=== PATIENT | male | born 1940 | race Caucasian/White ===

== ENCOUNTER 2018-11-28 21:50 | Inpatient (IN) ==
[2018-11-28] MEDS ORDERED: FUROSEMIDE 40 MG/4 ML VIAL IV ONE (21:58)
[2018-11-28] MEDS ORDERED: 0.9 % SODIUM CHLORIDE 250 ML IV SCH ×2 (22:00→22:15)
--- NOTE | 2018-11-28 22:10 | Emergency Department Note ---
Recheck HPI - General Chief Complaint: Recheck/Abnormal Lab/Rx Stated Complaint: abnormal lab work Time Seen by Provider: 11/28/18 21:54 Source: patient Mode of arrival: ambulatory Limitations: no limitations - History of Present Illness HPI Narrative: Phone call from Dr. Tsang in which he had discussed the patient that he was sending over. He had received his laboratory tests which showed a hematocrit of 18.5 but were unable to calculate the hemoglobin as he is to manage lipids noted and it is BNP was also elevated at 10,521. And he recommended that we diurese him as well given the transfusion. He had a chest x-ray which showed a small right infiltrate but his white count was only 6800 apparently has some edema to his lower extremities and he has been evaluated by CT and read by Dr. 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 Patient was asked to come into the ED to get transfusion diuresedTemperature is 96.9 the pulse is 94 the respirations 20 blood pressure 154/86 pulse ox is at 90%-93% patient smokes and continues smoking - Related Data Home Medications Medication Instructions Recorded Confirmed lanreotide 1 vial SUB-Q QMONTH 01/07/18 11/29/18 everolimus (antineoplastic) 10 mg 40 mg PO QDAY 08/12/18 11/29/18 tablet RX: Omeprazole [Prilosec] 40 mg PO BID 11/25/18 11/29/18 RX: HYDROcodone/APAP 10/325MG 1 tab PO Q4H PRN 11/28/18 11/29/18 [[place] 10-325Mg] Previous Rx's Medication Instructions Recorded tamsulosin 0.4 mg capsule 0.4 mg PO QDAY #90 cap 08/12/18 RX: Azithromycin [Zithromax] 500 mg PO DAILY #2 tab 12/01/18 RX: Cefdinir 300 mg PO BID #10 cap 12/01/18 Allergies Allergy/AdvReac Type Severity Reaction Status Date / Time morphine Allergy Severe Irritable Verified 11/28/18 13:35 codeine sulfate Allergy Severe Agitated Uncoded 11/28/18 13:35 Past Medical History - Past Medical History Medical history: Reports: hypertension - Social History smoking status: Current every day smoker Physical Exam Limitations: no limitations Course Vital Signs Temperature 96.9 F L 11/28/18 21:51 Pulse Rate 94 H 11/28/18 21:51 Respiratory Rate 20 11/28/18 21:51 Blood Pressure 154/86 11/28/18 21:51 Pulse Oximetry (%) 90 11/28/18 21:51 Temperature 98.6 F 12/01/18 12:21 Pulse Rate 94 H 12/01/18 12:21 Respiratory Rate 20 12/01/18 12:21 Blood Pressure 125/75 12/01/18 12:21 Pulse Oximetry (%) 90 12/01/18 12:21 Recheck/Abnormal Lab/Rx - MDM Narrative Medical decision making narrative: His initial dose of Lasix his urine output was greater than 1000 cc. The chest x-ray was repeated and shows a an increasing right sided infiltrate. Dr. Jang contacted and patient fitted for right pneumonia anemia, CHF - Lab Data Result diagrams: 12/01/18 04:36 12/01/18 04:36 Lab Results 11/28/18 11/28/18 11/28/18 Range/Units 22:05 22:05 22:20 WBC 7.4 (4.5-11.0) K/mcL RBC 2.86 L (4.50-5.90) M/mcL Hgb 8.4 L (13.5-16.5) g/dL Hct 25.4 L (41.0-55.0) % POC Hct 23.0 L (41.0-55.0) % MCV 89.1 (80.0-100.0) fL MCH 29.5 (26.0-34.0) pg MCHC 33.1 (31.0-36.0) g/dL RDW 16.8 H (11.5-14.5) % Plt Count 62 L (140-440) K/mcL MPV 12.2 H (7.4-10.4) fL Gran % 54.3 (38.0-78.0) % Lymph % (Auto) 25.5 (15.5-49.0) % [place] % (Auto) 17.3 H (1.0-12.0) % Eos % (Auto) 1.3 (0.0-7.0) % Baso % (Auto) 1.6 (0.0-2.0) % Gran # 4.2 (1.8-8.0) K/mcL Lymph # (Auto) 1.8 (1.5-4.8) K/mcL [place] # (Auto) 1.2 H (0.1-0.9) K/mcL Eos # (Auto) 0 (0.0-0.7) K/mcL Baso # (Auto) 0.2 (0.0-0.3) K/mcL VBG Lactic Acid 1.0 (0.5-2.0) mmol/L POC Sodium 147 H (133-145) mmol/L Sodium (133-145) mmol/L POC Potassium 3.5 (3.3-5.1) mmol/L Potassium (3.3-5.1) mmol/L POC Chloride 108 (96-108) mmol/L Chloride (96-108) mmol/L Carbon Dioxide (22-30) mmol/L POC Total CO2 28 (22-30) mmol/L Anion Gap (8-16) POC BUN 16 (8-23) mg/dl BUN (8-23) mg/dl Creatinine (0.7-1.2) mg/dl POC Creatinine 0.8 (0.7-1.2) mg/dl GFR Calculation Glucose (70-105) mg/dL POC Glucose 110 H (70-105) mg/dL Calcium (8.6-10.4) mg/dl POC WB Ioniz Calcium 1.13 L (1.16-1.32) mmol/L NT-Pro-B Natriuret Pep (0-450) pg/ml 11/29/18 11/29/18 Range/Units 07:02 07:02 WBC (4.5-11.0) K/mcL RBC (4.50-5.90) M/mcL Hgb (13.5-16.5) g/dL Hct (41.0-55.0) % POC Hct TNP (41.0-55.0) % MCV (80.0-100.0) fL MCH (26.0-34.0) pg MCHC (31.0-36.0) g/dL RDW (11.5-14.5) % Plt Count (140-440) K/mcL MPV (7.4-10.4) fL Gran % (38.0-78.0) % Lymph % (Auto) (15.5-49.0) % [place] % (Auto) (1.0-12.0) % Eos % (Auto) (0.0-7.0) % Baso % (Auto) (0.0-2.0) % Gran # (1.8-8.0) K/mcL Lymph # (Auto) (1.5-4.8) K/mcL [place] # (Auto) (0.1-0.9) K/mcL Eos # (Auto) (0.0-0.7) K/mcL Baso # (Auto) (0.0-0.3) K/mcL VBG Lactic Acid (0.5-2.0) mmol/L POC Sodium TNP (133-145) mmol/L Sodium 148 H (133-145) mmol/L POC Potassium TNP (3.3-5.1) mmol/L Potassium 3.5 (3.3-5.1) mmol/L POC Chloride TNP (96-108) mmol/L Chloride 107 (96-108) mmol/L Carbon Dioxide 30 (22-30) mmol/L POC Total CO2 TNP (22-30) mmol/L Anion Gap 11.0 (8-16) POC BUN TNP (8-23) mg/dl BUN 14 (8-23) mg/dl Creatinine 0.9 (0.7-1.2) mg/dl POC Creatinine TNP (0.7-1.2) mg/dl GFR Calculation 82 Glucose 102 (70-105) mg/dL POC Glucose TNP (70-105) mg/dL Calcium 8.4 L (8.6-10.4) mg/dl POC WB Ioniz Calcium TNP (1.16-1.32) mmol/L NT-Pro-B Natriuret Pep 55490.0 H (0-450) pg/ml Disposition 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
[2018-11-28 23:58] LABS: Basophils # (Auto) 0.2 K/mcL (0.0-0.3); Basophils % (Auto) 1.6 % (0.0-2.0); Eosinophils # (Auto) 0 K/mcL (0.0-0.7); Eosinophils % (Auto) 1.3 % (0.0-7.0); Granulocytes % (Auto) 54.3 % (38.0-78.0); Lymphocytes # (Auto) 1.8 K/mcL (1.5-4.8); Lymphocytes % (Auto) 25.5 % (15.5-49.0); Mean Cell Volume 89.1 fL (80.0-100.0); Mean Corpuscular HGB Conc 33.1 g/dL (31.0-36.0); Monocytes # (Auto) 1.2 K/mcL (0.1-0.9); Monocytes % (Auto) 17.3 % (1.0-12.0); Platelet Count 62 K/mcL (140-440); RBC 2.86 M/mcL (4.50-5.90); Red Cell Distribution Width 16.8 % (11.5-14.5)
[2018-11-29] MEDS ORDERED: FUROSEMIDE 20 MG/2 ML VIAL IV ONE ×2 (05:20→06:51)
[2018-11-29 07:56] LABS: Blood Urea Nitrogen 14 mg/dl (8-23)
[2018-11-29] MEDS ORDERED: cefTRIAXone 1 GM in DEXTROSE 5% IN WATER 50 ML IV ONE (08:59)
[2018-11-29] MEDS ORDERED: AZITHROMYCIN 500 MG in DEXTROSE 5% IN WATER 250 ML IV ONE ×2 (09:00→12:00)
--- NOTE | 2018-11-29 09:01 | XRay Report ---
CLINICAL INFORMATION: low O2 sat COMPARISON: 11/28/2018 FINDINGS: Mild cardiomegaly is unchanged. Mediastinum unremarkable. Pulmonary vessels within normal limits. Right lower lobe infiltrate has worsened and now moderate in size. Small right pleural effusion noted IMPRESSION: Moderate right lower lobe pneumonia with small effusion - worsening from yesterday Interpreted and Authenticated by: Cody Castañeda 11/29/18
--- NOTE | 2018-11-29 10:38 | Internal Med History&Physical ---
Medical - H&P: HPI Patient information: Note initiated : 11/29/18 at 10:36 am Service Date, if different from initiated Date: [] Patient: Alonso Finley a 78 y/o M admitted on for Abnormal Lab Work. Chief Complaint: [] Chief complaint: SOB History of present illness: Mr. Finley is a 78 year old M who presents to the ER after he was sent over by Dr. Tsang for low hemoglobin and need for blood transfusion. Patient carries a history of metastatic carcinoid tumor and currently being managed by Dr. Contreras at [facility]. He also underwent PRBC transfusion recently for low hemoglobin. On arrival to ER patient was found to be short of breath and hypoxia requiring oxygen. Subsequent chest x-ray showed right lower lobe infiltrate consistent with pneumonia. Patient was started on antibiotic coverage. Hospitalist service is consulted. At the time of evaluation patient is alert oriented. He denies sick contacts but endorses to recurrent aspiration pneumonia secondary to esophageal stricture. He had serial dilatation done by Dr. Kern and the most recent one was done few days ago by Dr. Kim. He currently does not have any dysphagia. He also denies fevers shaking chills productive sputum. He denies headache photophobia diarrhea dysuria abdominal pain. 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 08/27/14 Schatzki ring. 12/24/16 esophageal dysmotility. 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) Forehead History of coronary artery stent placement (Resolved) 05/06 LAD History of colonoscopy (Resolved 02/21/14) HP History of cataract surgery (Resolved) bilateral History of appendectomy (Resolved) History of surgery of liver (Resolved) 1/2 liver removal Pertinent family history: Father Abdominal aortic aneurysm Other Cancer Social history: household members: other housing: house lives independently: Yes marital status: 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 leisure activities: hunting other: 4 children smoking status: Current every day smoker quit status: not considering quitting counseling given: provider counseling alcohol intake frequency: a few times a week Smoking status: Current every day smoker Medical - H&P: Meds Home Medications Medication Instructions Recorded Confirmed Type lanreotide 1 vial SUB-Q QMONTH 01/07/18 11/29/18 History everolimus (antineoplastic) 10 mg 40 mg PO QDAY 08/12/18 11/29/18 History tablet tamsulosin 0.4 mg capsule 0.4 mg PO QDAY #90 cap 08/12/18 11/29/18 Rx Omeprazole [PriLOSEC] 40 mg PO BID 11/25/18 11/29/18 History HYDROcodone/APAP 10/325MG [[place] 1 tab PO Q4H PRN 11/28/18 11/29/18 History 10-325Mg] Allergies Allergy/AdvReac Type Severity Reaction Status Date / Time morphine Allergy Severe Irritable Verified 11/28/18 13:35 codeine sulfate Allergy Severe Agitated Uncoded 11/28/18 13:35 Medical - H&P: Exam - Constitutional Vitals: Temp Pulse Resp BP Pulse Ox 96.9 F L 77 18 122/78 98 11/28/18 21:51 11/29/18 10:20 11/29/18 10:20 11/29/18 10:16 11/29/18 10:20 General appearance: no acute distress Exam: Eye movements symmetric Oral cavity dry no ear nose discharge Head normocephalic Neck no lymphadenopathy S1-S2 regular rhythm Diminished breath sounds bases along with late inspiratory crackles right posterior chest. On 2 L oxygen Abdomen soft Lower extremity no cyanosis clubbing No joint swelling erythema Skin no suspicious lesion Psych alert cooperative Neuro nonfocal Medical - H&P: Reslt - Labs CBC & Chem 7: 11/30/18 05:15 11/30/18 05:15 Labs: Short CBC 11/28/18 Range/Units 22:05 WBC 7.4 (4.5-11.0) K/mcL Hgb 8.4 L (13.5-16.5) g/dL Hct 25.4 L (41.0-55.0) % Plt Count 62 L (140-440) K/mcL BMP 11/29/18 07:02 Sodium 148 H Potassium 3.5 Chloride 107 Carbon Dioxide 30 BUN 14 Creatinine 0.9 Glucose 102 Calcium 8.4 L Medical - H&P: A/P (1) RLL pneumonia Current visit: Yes Status: Acute * Right lower lobe pneumonia, aspiration versus community acquired, continue antibiotic coverage/aspiration precaution/ST eval. pneumonia severity index over 100 mandating inpatient hospitalization * Esophageal stricture requiring serial dilatation. Last endoscopic dilatation [address] Kim. Continue soft diet * Hypoxic respiratory insufficiency continue supplemental oxygen. Secondary to right lower lobe pneumonia. Admit as inpatient * Severe anemia status post 2 units transfusion. Hemoglobin over 8 * history of GERD on PPI * Thrombocytopenia. Continue to monitor. Avoid heparins * Advanced disease status post iliac artery angioplasty by Dr. Nova * History of metastatic carcinoid tumor-continue prior home medications * Full code * DVT prophylaxis SCDs in light of anemia and possible GI bleed Plan * Inpatient admit * Antibiotic coverage * Continue dysphagia diet after ST eval * Aspiration precautions * ST eval * Aggressive PT OT/rehab support * Pre-existing medical condition management and home meds
[2018-11-29] MEDS ORDERED: ACETAMINOPHEN 325 MG TABLET PO PRN (11:30)
[2018-11-29] MEDS ORDERED: ACETAMINOPHEN 1,000 MG/100 ML BOTTLE IV PRN (11:30)
[2018-11-29] MEDS ORDERED: MAGNESIUM SULFATE 2 GM/50 ML BAG IV PRN (11:30)
[2018-11-29] MEDS ORDERED: HYDROcodone/APAP 10/325MG TABLET PO PRN (11:30)
[2018-11-29] MEDS ORDERED: ONDANSETRON 4 MG/2 ML VIAL IV PRN (11:30)
[2018-11-29] MEDS ORDERED: POTASSIUM CHLORIDE 20 MEQ PACKET PO PRN (11:30)
[2018-11-29 12:32] LABS: C-Reactive Protein 3.4 mg/dl (0.0-0.8)
[2018-11-29] MEDS ORDERED: cefTRIAXone 1 GM VIAL IV ONE (13:00)
[2018-11-29] MEDS: IPRATROPIUM/ALBUTEROL 3 ML AMPUL.NEB NEB SCH ×4 (16:33→23:45)
[2018-11-29] MEDS: EVEROLIMUS 10 MG PO SCH (16:34)
[2018-11-29] MEDS: NICOTINE 14 MG PATCH TOPICAL SCH (16:35)
[2018-11-29] MEDS: 0.9 % SODIUM CHLORIDE 10 ML SYRINGE IV SCH ×2 (16:50→22:00)
[2018-11-29] MEDS: OMEPRAZOLE 20 MG CAPSULE PO SCH (16:53)
[2018-11-29 17:25] LABS: Appearance,Urine CLEAR; Bacteria,Urine FEW /hpf (0); Bilirubin,Urine NEG (NEG); Color,Urine YELLOW; Glucose,Urine (UA) NEGATIVE (NEG); Leukocyte Esterase,Urine NEG /uL (NEG); Mucus,Urine MANY /hpf (0); Protein,Urine 30 mg/dL (NEG); Specific Gravity,Urine 1.018 (1.000-1.035); Urine Blood NEG mg/dL (<0.03); Urine Hyaline Cast 3 /lpf (0-2); Urine RBC 1 /hpf (0-1); Urine Squamous Epithelial Cell < 1 /hpf (0-4); Urine WBC 4 /hpf (0-4); Urobilinogen,Urine NEG (NEG)
[2018-11-29] MEDS: BUDESONIDE 0.5 MG/2 ML AMPUL.NEB NEB SCH (19:58)
[2018-11-29] MEDS: DOCUSATE SODIUM 100 MG CAPSULE PO SCH (20:35)
[2018-11-29] MEDS: SENNOSIDES/DOCUSATE SODIUM 1 TAB TABLET PO SCH (20:36)
[2018-11-30] MEDS: 0.9 % SODIUM CHLORIDE 10 ML SYRINGE IV SCH ×5 (02:58→20:44)
[2018-11-30] MEDS: IPRATROPIUM/ALBUTEROL 3 ML AMPUL.NEB NEB SCH ×4 (02:58→19:25)
[2018-11-30] MEDS: OMEPRAZOLE 20 MG CAPSULE PO SCH ×2 (06:59→17:13)
[2018-11-30] MEDS: BUDESONIDE 0.5 MG/2 ML AMPUL.NEB NEB SCH ×2 (07:09→19:25)
[2018-11-30 07:11] LABS: ALT/SGPT 9 U/l (0-40); Alkaline Phosphatase 81 U/L (39-117); Bilirubin,Direct < 0.2 mg/dL (0.0-0.3); Blood Urea Nitrogen 14 mg/dl (8-23); Gamma Glutamyl Transpeptidase 26 U/L (8-61); Uric Acid 5.7 mg/dL (2.5-8.0)
[2018-11-30] MEDS ORDERED: POTASSIUM CHLORIDE 20 MEQ PACKET PO ONE (08:40)
[2018-11-30] MEDS: FUROSEMIDE 40 MG/4 ML VIAL IV SCH (08:53)
[2018-11-30] MEDS: MULTIVIT,THER IRON,CA,FA & MIN 1 TABLET PO SCH (08:53)
[2018-11-30] MEDS: TAMSULOSIN 0.4 MG CAPSULE PO SCH (08:53)
[2018-11-30] MEDS: DOCUSATE SODIUM 100 MG CAPSULE PO SCH ×2 (08:54→19:53)
[2018-11-30] MEDS: cefTRIAXone 2 GM in DEXTROSE 5% IN WATER 50 ML IV SCH (08:54)
[2018-11-30 09:00] LABS: Mean Cell Volume 85.4 fL (80.0-100.0); Mean Corpuscular HGB Conc 31.9 g/dL (31.0-36.0); Platelet Count 47 K/mcL (140-440); RBC 3.27 M/mcL (4.50-5.90); Red Cell Distribution Width 16.2 % (11.5-14.5)
[2018-11-30] MEDS ORDERED: LANREOTIDE SUB-Q SCH (09:00)
[2018-11-30 09:30] LABS: Anisocytosis 1+ (NONE SEEN); Band Neutrophils % 1 % (0-10); Eosinophils % (Manual) 3 % (0-7); Lymphocytes % 36 % (15-49); Monocytes % (Manual) 13 % (1-12); Platelet Estimate DECREASED (NORMAL); RBC Morphology ABNORM (NORMAL); Segmented Neutrophils % 47 % (38-78)
--- NOTE | 2018-11-30 09:36 | Internal Med Progress Note ---
Medical - PN: Subj Patient information: Note initiated : 11/30/18 at 9:33 am Service Date, if different from initiated Date: [] Patient: Alonso Finley a 78 y/o M admitted on 11/29/18 for Abnormal Lab Work. Chief Complaint: [] Interval history: Mr. Finley is a 78 year old M who presents to the ER after he was sent over by Dr. Tsang for low hemoglobin and need for blood transfusion. Patient carries a history of metastatic carcinoid tumor and currently being managed by Dr. Contreras at [facility]. He also underwent PRBC transfusion recently for low hemoglobin. On arrival to ER patient was found to be short of breath and hypoxia requiring oxygen. Subsequent chest x-ray showed right lower lobe infiltrate consistent with pneumonia. Patient was started on antibiotic coverage. Hospitalist service is consulted. At the time of evaluation patient is alert oriented. He denies sick contacts but endorses to recurrent aspiration pneumonia secondary to esophageal stricture. He had serial dilatation done by Dr. Kern and the most recent one was done few days ago by Dr. Kim. He currently does not have any dysphagia. 11/30-patient doing markedly better. Able to ambulate. On 2 L oxygen. Tolerating diet. Denies dysphagia. Denies fever chills productive cough or chest pain. Brother at bedside. No overnight events or concerns per staff - Constitutional Vitals: Vital Signs Temp Pulse Resp BP Pulse Ox 98.1 F 99 H 18 123/73 96 11/30/18 07:58 11/30/18 08:23 11/30/18 08:23 11/30/18 07:58 11/30/18 08:22 Period Temp Pulse Resp BP Sys/Martinez Pulse Ox Last 24 Hr 96.9 F-98.5 F 73-107 16-33 114-136/60-82 92-98 Intake and Output 11/29/18 11/30/18 11/30/18 21:59 05:59 13:59 Intake Total 860 350 120 Output Total 500 Balance 360 350 120 Weight 163 lb Intake & Output: Intake & Output 11/29/18 11/30/18 11/30/18 21:59 05:59 13:59 Intake Total 860 350 120 Output Total 500 Balance 360 350 120 Weight 163 lb Intake: Oral 860 350 120 Output: Void Amount 500 Other: Meal Dinner Percent of Meal Consumed 100% Feeding Ability Independent Urine Color Dark Yellow Stool Size Moderate Small Stool Color Brown Brown Pale Stool Consistency Loose Soft # Voids 1 # Bowel Movements 1 1 General appearance: no acute distress Exam: Alert oriented Nonlabored breathing Nondistended abdomen No anxiety Medical - PN: Obj Da - Labs CBC & Chem 7: 11/30/18 05:15 11/30/18 05:15 Labs: Abnormal Lab Results 11/30/18 11/30/18 11/29/18 05:15 05:15 16:30 RBC 3.27 L Hgb 8.9 L Hct 27.9 L POC Hct RDW 16.2 H Plt Count 47 L* MPV 12.0 H [place] % (Auto) [place] # (Auto) Monocytes % (Manual) 13 H Platelet Estimate Decreased A RBC Morphology Abnorm A Anisocytosis 1+ A ESR POC Sodium Sodium Potassium 3.1 L Carbon Dioxide 31 H Glucose 142 H POC Glucose Calcium 8.1 L POC WB Ioniz Calcium C-Reactive Protein NT-Pro-B Natriuret Pep Albumin 3.0 L Urine Protein 30 A Urine Bacteria Few A Hyaline Casts 3 H Urine Mucus Many A 11/29/18 11/29/18 11/29/18 11:46 11:46 07:02 RBC Hgb Hct POC Hct RDW Plt Count MPV [place] % (Auto) [place] # (Auto) Monocytes % (Manual) Platelet Estimate RBC Morphology Anisocytosis ESR 59 H POC Sodium Sodium Potassium Carbon Dioxide Glucose POC Glucose Calcium POC WB Ioniz Calcium C-Reactive Protein 3.4 H NT-Pro-B Natriuret Pep 41686.0 H Albumin Urine Protein Urine Bacteria Hyaline Casts Urine Mucus 11/29/18 11/28/18 11/28/18 07:02 22:05 22:05 RBC 2.86 L Hgb 8.4 L Hct 25.4 L POC Hct 23.0 L RDW 16.8 H Plt Count 62 L MPV 12.2 H [place] % (Auto) 17.3 H [place] # (Auto) 1.2 H Monocytes % (Manual) Platelet Estimate RBC Morphology Anisocytosis ESR POC Sodium 147 H Sodium 148 H Potassium Carbon Dioxide Glucose POC Glucose 110 H Calcium 8.4 L POC WB Ioniz Calcium 1.13 L C-Reactive Protein NT-Pro-B Natriuret Pep Albumin Urine Protein Urine Bacteria Hyaline Casts Urine Mucus Meds: Medications Acetaminophen (Tylenol) 650 mg PO Q4-6HP PRN PRN Reason: PAIN/FEVER > 101 Hydrocodone Bitart/Acetaminophen ([place] 10/325mg) 1 tab PO Q4H PRN PRN Reason: Pain Albuterol/Ipratropium (Duoneb) 3 ml NEB Q6HRT [facility] Budesonide (Pulmicort) 0.5 mg NEB Q12 [facility] Last Admin: 11/30/18 07:09 Dose: 0.5 mg Documented by: Docusate Sodium (Colace) 100 mg PO BID [facility] Last Admin: 11/30/18 08:54 Dose: Not Given Documented by: Furosemide (Lasix) 40 mg IV DAILY [facility] Last Admin: 11/30/18 08:53 Dose: 40 mg Documented by: Ceftriaxone Sodium 2 gm/ (Dextrose) 50 mls @ 100 mls/hr IV Q24H [facility] Last Admin: 11/30/18 08:54 Dose: 100 mls/hr Documented by: Magnesium Sulfate (Magnesium Sulfate) 2 gm in 50 mls @ 50 mls/hr IV UD PRN PRN Reason: MG = or < 1.7 Acetaminophen (Ofirmev) 1,000 mg in 100 mls @ 200 mls/hr IV Q6HP PRN PRN Reason: PAIN/FEVER > 101 Iron Carb/Multivit/Swain/Folic Acid (Multivitamin W/Minerals) 1 tab PO DAILY [facility] Last Admin: 11/30/18 08:53 Dose: 1 tab Documented by: Nicotine (Nicoderm) 14 mg TOPICAL DAILY@1000 [facility] Last Admin: 11/29/18 16:35 Dose: 14 mg Documented by: Omeprazole (Prilosec) 40 mg PO BIDAC [facility] Last Admin: 11/30/18 06:59 Dose: 40 mg Documented by: Ondansetron HCl (Zofran) 4 mg IV Q4-6HP PRN PRN Reason: Nausea And Vomiting Everolimus [Afinitor (] 10 Mg Tab) 1 dose PO DAILY@1700 [facility] Last Admin: 11/29/18 16:34 Dose: 1 dose Documented by: Potassium Chloride (Klor-Con) 40 meq PO DAILYP PRN PRN Reason: K+ < 3.5 Senna/Docusate Sodium (Senna Plus Tablet) 1 tab PO HS [facility] Last Admin: 11/29/18 20:36 Dose: Not Given Documented by: Sodium Chloride (Saline Flush) 10 ml IV Q8 [facility] Last Admin: 11/30/18 05:25 Dose: Not Given Documented by: Tamsulosin HCl (Flomax) 0.4 mg PO QDAY [facility] Last Admin: 11/30/18 08:53 Dose: 0.4 mg Documented by: Medical - PN: A/P - Time Spent With Patient Total time spent is greater than 50% in coordination of care (as documented) at patient's floor/unit and/or counseling patient: 15 - 24 minutes (1) RLL pneumonia Status: Acute Assessment and plan: * Right lower lobe pneumonia, aspiration versus community acquired, clinical improvement noted on antibiotic coverage. Continue aspiration precaution/ST eval. * Dysphagia secondary to esophageal stricture requiring serial dilatation. Last endoscopic dilatation by Dr. Kim last week. * Hypoxic respiratory insufficiency continue supplemental oxygen. Secondary to right lower lobe pneumonia. Admit as inpatient * Severe anemia status post 2 units transfusion. Hemoglobin over 8 * history of GERD on PPI * Thrombocytopenia. Stable. * Advanced disease status post iliac artery angioplasty by Dr. Nova * History of metastatic carcinoid tumor-continue prior home medications * Full code * DVT prophylaxis SCDs in light of anemia and thrombocytopenia Plan * Continue antibiotic coverage * Diet per ST * Aspiration precautions * Aggressive PT OT/rehab support * Pre-existing medical condition management and home meds Current Visit: Yes Medical - PN: Qual - Stroke Symptom Onset Unknown: No - VTE Deep Vein Thrombosis/Pulmonary Embolism Present on Admission: No
[2018-11-30] MEDS: NICOTINE 14 MG PATCH TOPICAL SCH (10:23)
[2018-11-30] MEDS: EVEROLIMUS 10 MG PO SCH (16:53)
[2018-11-30] MEDS: SENNOSIDES/DOCUSATE SODIUM 1 TAB TABLET PO SCH (19:53)
[2018-12-01] MEDS: IPRATROPIUM/ALBUTEROL 3 ML AMPUL.NEB NEB SCH ×2 (00:42→08:51)
[2018-12-01] MEDS: 0.9 % SODIUM CHLORIDE 10 ML SYRINGE IV SCH (05:31)
[2018-12-01 06:11] LABS: ALT/SGPT 9 U/l (0-40); Albumin 2.9 gm/dL (3.2-5.2); Albumin/Globulin Ratio 0.9 (1.0-2.3); Alkaline Phosphatase 88 U/L (39-117); Bilirubin,Direct < 0.2 mg/dL (0.0-0.3); Blood Urea Nitrogen 13 mg/dl (8-23); Gamma Glutamyl Transpeptidase 28 U/L (8-61); Uric Acid 6.2 mg/dL (2.5-8.0)
[2018-12-01] MEDS: OMEPRAZOLE 20 MG CAPSULE PO SCH (07:23)
--- NOTE | 2018-12-01 07:35 | XRay Report ---
CLINICAL INFORMATION: Follow-up pneumonia COMPARISON: 11/29/2018 FINDINGS: The heart is mildly enlarged - slightly increased. Mediastinum is unremarkable. Pulmonary vessels are mildly distended is minimal interstitial edema. Right basilar infiltrate is worse and now moderate in size. There also is new moderate consolidated atelectasis or infiltrate developing in the left lower lobe - retrocardiac region IMPRESSION: 1. Mild CHF - new. 2. Worsening right basilar infiltrate now moderate-sized. Small right pleural effusion 3. New region of moderate consolidated atelectasis or infiltrate in the left base Interpreted and Authenticated by: Cody Castañeda 12/01/18
[2018-12-01] MEDS: MULTIVIT,THER IRON,CA,FA & MIN 1 TABLET PO SCH (08:32)
[2018-12-01] MEDS: TAMSULOSIN 0.4 MG CAPSULE PO SCH (08:32)
[2018-12-01] MEDS: cefTRIAXone 2 GM in DEXTROSE 5% IN WATER 50 ML IV SCH (08:33)
[2018-12-01] MEDS: BUDESONIDE 0.5 MG/2 ML AMPUL.NEB NEB SCH (08:51)
[2018-12-01 09:12] LABS: Mean Cell Volume 85.3 fL (80.0-100.0); Mean Corpuscular HGB Conc 31.5 g/dL (31.0-36.0); Platelet Count 47 K/mcL (140-440); RBC 3.29 M/mcL (4.50-5.90); Red Cell Distribution Width 16.7 % (11.5-14.5)
[2018-12-01] MEDS: DOCUSATE SODIUM 100 MG CAPSULE PO SCH (09:24)
[2018-12-01] MEDS: FUROSEMIDE 40 MG/4 ML VIAL IV SCH (09:24)
--- NOTE | 2018-12-01 09:29 | Discharge Summary ---
Medical - DS: Prov Patient information: Note initiated : 12/01/18 at 9:27 am Service Date, if different from initiated Date: [] Patient: Alonso Finley 78 y/o M admitted on 11/29/18 for Abnormal Lab Work. Chief Complaint: [] Date of admission: 11/29/18 11:09 Discharge date: 12/01/18 Primary care physician: Raymond Tsang Consults: 11/29/18 Consult to Physician [CONS] Stat Comment: Consulting Provider: Miles Patel Reason For Exam: Physician to Consult Medical - DS: Meds - Discharge Medications Prescriptions: Azithromycin [Zithromax] 500 mg PO DAILY #2 tablet Cefdinir 300 mg PO BID #10 capsule Active and Home Medications: Home Medications lanreotide 1 vial SUB-Q QMONTH 01/07/18 [History Confirmed 11/29/18 Last Taken Unknown] everolimus (antineoplastic) 10 mg tablet 40 mg PO QDAY 08/12/18 [History Confirmed 11/29/18 Last Taken Unknown] tamsulosin 0.4 mg capsule 0.4 mg PO QDAY #90 cap 08/12/18 [Rx Confirmed 11/29/18 Last Taken Unknown] Omeprazole [Prilosec] 40 mg PO BID 11/25/18 [History Confirmed 11/29/18 Last Taken Unknown] HYDROcodone/APAP 10/325MG [[place] 10-325Mg] 1 tab PO Q4H PRN 11/28/18 [History Confirmed 11/29/18 Last Taken Unknown] Azithromycin [Zithromax] 500 mg PO DAILY #2 tablet 12/01/18 [Rx Last Taken Unknown] Cefdinir 300 mg PO BID #10 capsule 12/01/18 [Rx Last Taken Unknown] Medical - DS: Hosp Hospital course: \ Discharge diagnosis * Right lower lobe pneumonia community acquired, clinical improvement noted on antibiotic coverage. Continue additional 5 days antibiotics. Continue aspiration precaution and diet as per ST recommendations * Dysphagia secondary to esophageal stricture requiring serial dilatation. Last endoscopic dilatation by Dr. Kim last week. Follow-up as scheduled by GI as outpatient * Hypoxic respiratory insufficiency resolved. Now on room air * Severe anemia status post 2 units transfusion. Hemoglobin over 8 * history of GERD on PPI * Thrombocytopenia. Stable. * Advanced disease status post iliac artery angioplasty by Dr. Nova * History of metastatic carcinoid tumor-continue prior home medications Brief hospital course Mr. Finley is a 78 year old M who presents to the ER after he was sent over by Dr. Tsang for low hemoglobin and need for blood transfusion. Patient carries a history of metastatic carcinoid tumor and currently being managed by Dr. Contreras at [facility]. He also underwent PRBC transfusion recently for low hemoglobin. On arrival to ER patient was found to be short of breath and hypoxia requiring oxygen. Subsequent chest x-ray showed right lower lobe infiltrate consistent with pneumonia. Patient was started on antibiotic coverage. Hospitalist service is consulted. At the time of evaluation patient is alert oriented. He denies sick contacts but endorses to recurrent aspiration pneumonia secondary to esophageal stricture. He had serial dilatation done by Dr. Kern and the most recent one was done few days ago by Dr. Kim. He currently does not have any dysphagia. 11/30-patient doing markedly better. Able to ambulate. On 2 L oxygen. Tolerating diet. Denies dysphagia. Denies fever chills productive cough or chest pain. Brother at bedside. No overnight events or concerns per staff 12/01-patient doing well. No overnight events. Now on room air. Ambulating with ease. Much improved shortness of breath. Advised to continue antibiotics for additional 5 days. Follow-up with primary care physician along with oncologist as prior. Detailed discharge instruction as below Discharge diagnosis: . - Time Spent with Patient Total time spent providing and/or coordinating discharge services: Medical - DS: Exam - Constitutional Vitals: Vital Signs Temp Pulse Pulse Resp BP BP Pulse Ox 12/01/18 08:53 92 H 18 12/01/18 07:33 98.7 F 88 18 131/76 93 12/01/18 03:30 98.6 F 89 18 130/78 93 11/30/18 23:30 98.1 F 90 16 111/62 92 11/30/18 19:53 98.2 F 94 H 18 128/73 92 11/30/18 19:25 87 20 11/30/18 15:00 98.6 F 90 20 109/66 92 11/30/18 13:02 87 20 11/30/18 11:04 97.5 F 93 H 20 132/74 95 Intake and Output 11/30/18 12/01/18 12/01/18 21:59 05:59 13:59 Intake Total 360 300 50 Balance 360 300 50 Intake: IV 50 Rocephin 2 gm In Dextrose 5% in 50 Water 50 ml @ 100 mls/hr IV Q24H [facility] Rx#:[id number] Oral 360 300 Other: Meal Dinner Percent of Meal Consumed 100% Feeding Ability Assist with Tray Set Up # Voids 1 1 # Bowel Movements 1 1 Weight 164 lb 8 oz Medical - DS: Data Labs on day of discharge: Labs from last 24 hours 12/01/18 12/01/18 11/30/18 04:36 04:36 05:15 WBC 5.3 RBC 3.29 L Hgb 8.8 L Hct 28.1 L MCV 85.3 MCH 26.8 MCHC 31.5 RDW 16.7 H Plt Count 47 L* MPV 13.9 H Total Counted Pending 100 Seg Neutrophils % 47 Band Neutrophils % Not Reportable 1 Lymphocytes % 36 Monocytes % (Manual) 13 H Eosinophils % (Manual) 3 Platelet Estimate Pending Decreased A RBC Morphology Pending Abnorm A Anisocytosis 1+ A Sodium 146 H Potassium 3.2 L Chloride 106 Carbon Dioxide 33 H Anion Gap 7.0 L BUN 13 Creatinine 0.8 GFR Calculation 86 Glucose 104 Uric Acid 6.2 Calcium 8.2 L Phosphorus 3.4 Magnesium 1.9 Total Bilirubin 0.3 Direct Bilirubin < 0.2 GGT 28 AST 14 ALT 9 Alkaline Phosphatase 88 Lactate Dehydrogenase 228 Total Protein 6.1 Albumin 2.9 L Globulin 3.2 Albumin/Globulin Ratio 0.9 L Triglycerides 77 Preliminary micro results at discharge 11/28/18 22:20 Blood Culture - Preliminary Blood 11/28/18 22:40 Blood Culture - Preliminary Blood 11/29/18 16:30 Urine Culture - Preliminary Urine - Clean Void [facility] - DS: A/P - Patient/Caregiver Discharge Instructions Activity: increase activity as tolerated, resume usual activities as tolerated Diet: Regular Diet Additional Instructions: Follow-up PCP in 5 days I recommend PCP to check CBC BMP UA as a posthospital follow-up and Chest x-ray in 1 week. Antibiotics for 5 days Cefdinir, 1 dose azithromycin Continue aggressive bowel regimen to prevent constipation Continue fall precautions All meals on chair sitting upright at 90 degrees to prevent aspiration Return to ER if worsening fever chills shortness of breath, diarrhea, bleeding Review risk and side effect profile of medications including antibiotics. Side effect may include mild to severe reaction including rash, diarrhea, cdiff and even which can be prevented by close follow-up with PCP and monitoring for side effects Refrain from smoking Continue diet and activity as advised Discussed importance of medication adherence Please review medication list with patient prior to discharge Please schedule follow-up with PCP/Providers prior to discharge and provide printouts Prescriptions: Azithromycin [Zithromax] 500 mg PO DAILY #2 tablet Cefdinir 300 mg PO BID #10 capsule - Follow up Plan Follow up with: Raymond Tsang MD [Primary Care Provider] - Disposition: Home, Self-Care Prognosis: Fair Rehab Potential: Fair I certify that the patient requires SNF services: No Overall status at discharge: patient is back to baseline Medical - DS: Qual - VTE Deep Vein Thrombosis/Pulmonary Embolism Present on Admission: No
[2018-12-01] MEDS: NICOTINE 14 MG PATCH TOPICAL SCH (10:57)
[2018-12-01 11:51] LABS: Anisocytosis 1+ (NONE SEEN); Band Neutrophils % 2 % (0-10); Basophils % (Manual) 1 % (0-2); Eosinophils % (Manual) 1 % (0-7); Hypochromasia 1+ (NONE SEEN); Lymphocytes % 26 % (15-49); Monocytes % (Manual) 19 % (1-12); Platelet Estimate MK DECR (NORMAL); RBC Morphology ABNORM (NORMAL); Segmented Neutrophils % 51 % (38-78)
== END 2018-12-01 12:25 | disposition home or self-care (01) | DRG 195 ==
LOC: ED 21:50 → MEDSUR 11-29 11:09
PROVIDERS: ADMIT Internal Medicine; ATTEND Internal Medicine

== ENCOUNTER 2018-12-03 11:27 | Inpatient (IN) ==
[2018-12-03] MEDS ORDERED: IPRATROPIUM/ALBUTEROL 3 ML AMPUL.NEB NEB ONE (11:47)
[2018-12-03] MEDS ORDERED: 0.9 % SODIUM CHLORIDE 1,000 ML IV ONE ×2 (11:52→13:02)
--- NOTE | 2018-12-03 11:52 | Emergency Department Note ---
SOB HPI - General Chief Complaint: Shortness of Breath/Dyspnea Stated Complaint: SOB, low sats Time Seen by Provider: 12/03/18 11:35 Source: patient Mode of arrival: wheelchair Limitations: no limitations - History of Present Illness 78-year-old male comes in for shortness of breath found to be hypoxic and oxygen is started on him nasal cannula. He was actually seen here from 11/29 to 12/01/2018-discharged home without oxygen as he did no longer need it. He has been home for 2 days now but has not been able to sleep lying down, orthopnea. Hypoxia was getting worse and he just could not breathe so he came back in today. He has a history of aspiration pneumonia as well as carcinoid tumor of the lung for which he is getting antineoplastic therapy with Dr. Leary. In the recent past he has had to have thoracentesis as well as blood transfusion. No nausea vomiting or fever. However he is having diarrhea - Related Data Home Medications Medication Instructions Recorded Confirmed lanreotide 1 vial SUB-Q QMONTH 01/07/18 12/03/18 everolimus (antineoplastic) 10 mg 40 mg PO QDAY 08/12/18 12/03/18 tablet Omeprazole [Prilosec] 40 mg PO BID 11/25/18 12/03/18 HYDROcodone/APAP 10/325MG [[place]fe[place] 1 tab PO Q4H PRN 11/28/18 12/03/18 10-325Mg] Previous Rx's Medication Instructions Recorded tamsulosin 0.4 mg capsule 0.4 mg PO QDAY #90 cap 08/12/18 Azithromycin [Zithromax] 500 mg PO DAILY #2 tab 12/01/18 Cefdinir 300 mg PO BID #10 cap 12/01/18 Allergies Allergy/AdvReac Type Severity Reaction Status Date / Time morphine Allergy Severe Irritable Verified 11/28/18 13:35 codeine sulfate Allergy Severe Agitated Uncoded 11/28/18 13:35 Review of Systems All systems ED: reviewed and negative except as stated. Past Medical History - Past Medical History Attestation: Yes: The following information was validated with the patient. [facility] Narrative: Family History (Last Reviewed 11/28/18 @ 15:00 by Raymond Tsang MD) Father Abdominal aortic aneurysm Other Cancer Medical History (Last Reviewed 11/28/18 @ 15:00 by Raymond Tsang MD) Avulsion of skin (Resolved) Thrombocytopenia (Chronic) Lesion of lumbar spine (Chronic) Schatzki's ring (Chronic 08/27/14) Renal cyst (Chronic) Reactive airway disease (Chronic 01/29/14) Pseudophakia (Chronic) Peripheral vascular disease (Chronic) Osteoarthritis (Chronic) Neuroendocrine carcinoma (Chronic) Myocardial infarction, old (Chronic) Macrocytosis (Chronic) Abnormal liver function test (Chronic) Hypertension, essential (Chronic) Hyperlipidemia (Chronic) Hydrocele (Chronic) Dysphagia (Chronic) Corneal dystrophy (Chronic) Benign neoplasm of colon (Chronic) Secondary malignant neoplasm of liver (Chronic) Metastatic carcinoid tumor (Chronic) CAD (coronary artery disease) (Chronic) Deficiency anemia (Chronic) Vitreous detachment (Resolved) Vitreous hemorrhage (Resolved) Actinic keratosis (Chronic 05/13/13) Past Surgical History (Last Reviewed 11/28/18 @ 15:00 by Raymond Tsang MD) History of esophagogastroduodenoscopy (Resolved 08/27/14) History of shoulder surgery (Resolved) History of resection of small bowel (Resolved) 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 Normocephalic atraumatic conjunctive are clear sclerae white and nonicteric. No nasal discharge or congestion but he is wearing nasal cannula oxygen now oropharynx is pink and moist. Neck is supple without lymphadenopathy or thyromegaly. No carotid bruit. Heart regular rate and rhythm no murmur appreciated. I did attempt to auscultate the lungs multiple locations and am not hearing significant wheezing or rales however lung sounds are relatively quiet. Abdomen is soft nontender nondistended. Bilateral lower extremity edema worse on the right-he notes chronic aneurysm which Dr. Nova is following. +2 radial pulse. Alert oriented. Irritable Limitations: no limitations Course Vital Signs Temperature 97.6 F 12/03/18 11:29 Pulse Rate 95 H 12/03/18 11:29 Respiratory Rate 24 H 12/03/18 11:29 Blood Pressure 154/77 12/03/18 11:29 Pulse Oximetry (%) 86 L 12/03/18 11:29 Temperature 97.6 F 12/03/18 11:29 Pulse Rate 87 12/03/18 13:55 Respiratory Rate 20 12/03/18 13:55 Blood Pressure 113/58 12/03/18 13:46 Pulse Oximetry (%) 97 12/03/18 13:55 Shortness of Breath/Dyspnea - Lab Data Result diagrams: 12/03/18 12:00 12/03/18 12:00 Lab Results 12/03/18 12/03/18 12/03/18 Range/Units 12:00 12:00 12:00 WBC 6.2 (4.5-11.0) K/mcL RBC 3.39 L (4.50-5.90) M/mcL Hgb 10.7 L (13.5-16.5) g/dL Hct 30.8 L (41.0-55.0) % POC Hct 29.0 L (41.0-55.0) % MCV 91.1 (80.0-100.0) fL MCH 31.6 (26.0-34.0) pg MCHC 34.7 (31.0-36.0) g/dL RDW 16.0 H (11.5-14.5) % Plt Count 40 L* (140-440) K/mcL MPV 11.2 H (7.4-10.4) fL Gran % 47.9 (38.0-78.0) % Lymph % (Auto) 29.6 (15.5-49.0) % [place] % (Auto) 17.2 H (1.0-12.0) % Eos % (Auto) 2.8 (0.0-7.0) % Baso % (Auto) 2.5 H (0.0-2.0) % Gran # 2.9 (1.8-8.0) K/mcL Lymph # (Auto) 1.8 (1.5-4.8) K/mcL [place] # (Auto) 1.1 H (0.1-0.9) K/mcL Eos # (Auto) 0.2 (0.0-0.7) K/mcL Baso # (Auto) 0.2 (0.0-0.3) K/mcL D-Dimer 3.20 H (0.00-0.40) ug/ml VBG Lactic Acid (0.5-2.0) mmol/L POC Sodium 146 H (133-145) mmol/L Sodium 145 (133-145) mmol/L POC Potassium 4.2 (3.3-5.1) mmol/L Potassium 4.3 (3.3-5.1) mmol/L POC Chloride 107 (96-108) mmol/L Chloride 107 (96-108) mmol/L Carbon Dioxide 29 (22-30) mmol/L POC Total CO2 28 (22-30) mmol/L Anion Gap 9.0 (8-16) POC BUN 18 (8-23) mg/dl BUN 17 (8-23) mg/dl Creatinine 0.8 (0.7-1.2) mg/dl POC Creatinine 0.9 (0.7-1.2) mg/dl GFR Calculation 86 Glucose 85 (70-105) mg/dL POC Glucose 86 (70-105) mg/dL Calcium 8.5 L (8.6-10.4) mg/dl POC WB Ioniz Calcium 1.17 (1.16-1.32) mmol/L Magnesium 2.1 (1.6-2.5) mg/dL Total Bilirubin 0.3 (0.0-1.0) mg/dL AST 22 (0-37) U/l ALT 12 (0-40) U/l Alkaline Phosphatase 103 (39-117) U/L Troponin T (0-0.03) ng/ml NT-Pro-B Natriuret Pep 6242.0 H (0-450) pg/ml Total Protein 6.9 (5.9-8.4) gm/dL Albumin 3.3 (3.2-5.2) gm/dL Globulin 3.6 (2.2-3.7) gm/dL Albumin/Globulin Ratio 0.9 L (1.0-2.3) Lipase 40 (7-60) U/L Procalcitonin (<0.10) ng/mL 12/03/18 12/03/18 12/03/18 Range/Units 12:00 12:00 12:00 WBC (4.5-11.0) K/mcL RBC (4.50-5.90) M/mcL Hgb (13.5-16.5) g/dL Hct (41.0-55.0) % POC Hct (41.0-55.0) % MCV (80.0-100.0) fL MCH (26.0-34.0) pg MCHC (31.0-36.0) g/dL RDW (11.5-14.5) % Plt Count (140-440) K/mcL MPV (7.4-10.4) fL Gran % (38.0-78.0) % Lymph % (Auto) (15.5-49.0) % [place] % (Auto) (1.0-12.0) % Eos % (Auto) (0.0-7.0) % Baso % (Auto) (0.0-2.0) % Gran # (1.8-8.0) K/mcL Lymph # (Auto) (1.5-4.8) K/mcL [place] # (Auto) (0.1-0.9) K/mcL Eos # (Auto) (0.0-0.7) K/mcL Baso # (Auto) (0.0-0.3) K/mcL D-Dimer (0.00-0.40) ug/ml VBG Lactic Acid 0.8 (0.5-2.0) mmol/L POC Sodium (133-145) mmol/L Sodium (133-145) mmol/L POC Potassium (3.3-5.1) mmol/L Potassium (3.3-5.1) mmol/L POC Chloride (96-108) mmol/L Chloride (96-108) mmol/L Carbon Dioxide (22-30) mmol/L POC Total CO2 (22-30) mmol/L Anion Gap (8-16) POC BUN (8-23) mg/dl BUN (8-23) mg/dl Creatinine (0.7-1.2) mg/dl POC Creatinine (0.7-1.2) mg/dl GFR Calculation Glucose (70-105) mg/dL POC Glucose (70-105) mg/dL Calcium (8.6-10.4) mg/dl POC WB Ioniz Calcium (1.16-1.32) mmol/L Magnesium (1.6-2.5) mg/dL Total Bilirubin (0.0-1.0) mg/dL AST (0-37) U/l ALT (0-40) U/l Alkaline Phosphatase (39-117) U/L Troponin T < 0.01 (0-0.03) ng/ml NT-Pro-B Natriuret Pep (0-450) pg/ml Total Protein (5.9-8.4) gm/dL Albumin (3.2-5.2) gm/dL Globulin (2.2-3.7) gm/dL Albumin/Globulin Ratio (1.0-2.3) Lipase (7-60) U/L Procalcitonin < 0.05 (<0.10) ng/mL Arterial blood gas shows pH of 7.42 PCO2 43 PO2 of 58 this is on 2 L nasal cannula - Radiology Data Radiology results reviewed: Yes I reviewed the patient's radiology results. Chest x-ray reviewed one view portable shows diffuse infiltrate versus ARDS. Patient is on BiPAP - EKG Data EKG attestation: Yes I reviewed and interpreted this EKG. EKG results narrative: EKG shows a rate of 92 with a left anterior fascicular block. Sinus rhythm. Old anterior infarct with a Q wave in V2 V3 Disposition Pt seen by [facility]/PA only: No Clinical Impression: Acute exacerbation of chronic obstructive airways disease, Carcinoid syndrome Respiratory failure with hypoxia Qualifiers: Chronicity: acute Qualified Code(s): J96.01 - Acute respiratory failure with hypoxia Congestive heart failure Qualifiers: Heart failure type: unspecified Heart failure chronicity: acute on chronic Qualified Code(s): I50.9 - Heart failure, unspecified Community acquired pneumonia Qualifiers: Laterality: unspecified laterality Qualified Code(s): J18.9 - Pneumonia, unspecified organism Summary: Workup ordered with x-ray laboratory Clinically he was dry so we started IV fluids and oxygen. He had marginal improvement with single treatment DuoNeb then had a episode of respiratory distress for which he was put on a nonrebreather mask and so then we gave him another dose of albuterol. At that time his chest still sounded clear ; x-ray is pending. EKG was unremarkable. He gradually improved in respiratory distress but we had to stop the albuterol as we needed to bring him to a nonrebreather mask. At that point he was on maximal oxygen 15 L nonrebreather so we started BiPAP. I had a brief discussion with him regarding this and the possibility of even intubation if he continued to have respiratory distress with oxygen dropping. At the point of starting BiPAP his oxygen level was in the low 90s on a nonrebreather. Chest x-ray portable one view showed prominent vasculature versus infiltrates. CT angiogram was ordered as well as Ativan for anxiety while on BiPAP Blood cultures were done and he was started on Zosyn. Solu-Medrol started for the COPD component Second blood gas on BiPAP shows pH of 7.36 PCO2 50 PO2 of 73 with FiO2 of 35%. BiPAP was adjusted. After getting the Ativan he relaxed quite a bit and actually slept some. CT angiogram shows COPD congestive heart failure and groundglass infiltrates. He had received 2 L IV fluids but it was clear at this point that he had actually CHF despite appearing clinically dry. So I stopped the IV fluids started furosemide put in a Mcdermott catheter. Reviewed echocardiogram from 11/29/2018 which showed 50% or so ejection fraction with mild to moderate aortic stenosis and pulmonary hypertension I discussed the situation with Dr. Madrid, the hospitalist, who agreed to accept the patient for further care and evaluation in the hospital. Disposition: Xfer As Inpt ([facility]) Condition: Fair Referrals: Raymond Tsang MD [Primary Care Provider] - Emanuel Leary MD [Physician] - Cody Nova MD [Physician] -
[2018-12-03] MEDS ORDERED: ALBUTEROL SULFATE 2.5 MG/3 ML NEBULIZER NEB ONE (12:30)
[2018-12-03] MEDS ORDERED: LORazepam 2 MG/ML VIAL IV ONE ×2 (12:31→12:50)
[2018-12-03 13:15] LABS: ALT/SGPT 12 U/l (0-40); Albumin 3.3 gm/dL (3.2-5.2); Albumin/Globulin Ratio 0.9 (1.0-2.3); Alkaline Phosphatase 103 U/L (39-117); Blood Urea Nitrogen 17 mg/dl (8-23); Lipase 40 U/L (7-60)
[2018-12-03] MEDS ORDERED: PIPERACILLIN SODIUM/TAZOBACTAM 3.375 GM in DEXTROSE 5% IN WATER 50 ML IV ONE (13:15)
[2018-12-03 13:17] LABS: Basophils # (Auto) 0.2 K/mcL (0.0-0.3); Basophils % (Auto) 2.5 % (0.0-2.0); Eosinophils # (Auto) 0.2 K/mcL (0.0-0.7); Eosinophils % (Auto) 2.8 % (0.0-7.0); Granulocytes % (Auto) 47.9 % (38.0-78.0); Lymphocytes # (Auto) 1.8 K/mcL (1.5-4.8); Lymphocytes % (Auto) 29.6 % (15.5-49.0); Mean Cell Volume 91.1 fL (80.0-100.0); Mean Corpuscular HGB Conc 34.7 g/dL (31.0-36.0); Monocytes # (Auto) 1.1 K/mcL (0.1-0.9); Monocytes % (Auto) 17.2 % (1.0-12.0); Platelet Count 40 K/mcL (140-440); RBC 3.39 M/mcL (4.50-5.90)
--- NOTE | 2018-12-03 13:18 | XRay Report ---
CLINICAL INFORMATION: Dyspnea history CHF COMPARISON: 12/01/2018 FINDINGS: Moderate cardiomegaly is unchanged. Mediastinum is unremarkable. Small/moderate right basilar infiltrate is much better better aerated. Small left basilar infiltrate has nearly resolved. Pulmonary vessels are moderately distended and there is mild interstitial edema throughout both lungs which has worsened IMPRESSION: Moderate CHF - worsening Small/moderate right and minimal left basilar infiltrate improving considerably over the past two days Interpreted and Authenticated by: Cody Castañeda 12/03/18
[2018-12-03] MEDS ORDERED: methylPREDNISolone SOD SUCC 125 MG/2 ML VIAL IV ONE (13:34)
--- NOTE | 2018-12-03 14:07 | Cat Scan Report ---
CLINICAL INFORMATION: Hypoxia COMPARISON: Abdomen CT 01/18/2014. Chest abdomen and pelvic CT 07/16/2014 TECHNIQUE: 80 cc of Isovue-300 were injected intravenously. Using SmartPrep to maximize pulmonary artery opacification, 2.5 mm helical slices were obtained from the lung apices through the lung bases. Following reconstruction, 2.5 mm sagittal, coronal, and axial reformations were processed. The exam was reviewed at mediastinal, lung, and bone windows. The exam was performed using radiation dose optimization techniques including, but not limited to, automated exposure control, adjustment of the mA and/or kV according to patient size and use of iterative reconstruction technique. FINDINGS: Pulmonary parenchymal windows show mild underlying chronic bronchitis. There are moderate right and small left pleural effusions - both new from the previous study. Moderate diffuse enlargement of the pulmonary arteries is compatible diagnosis CHF. There is no evidence of pulmonary embolus. Moderate patchy groundglass airspace disease in the right upper right middle and right lower lobes could indicate superimposed infiltrate versus atypical edema.. Small groundglass infiltrate also noted in the posterior left lower lobe. The heart is mildly enlarged and is heavy calcific plaque in the LAD coronary artery. Thoracic aorta is normal in contour and caliber. There is no adenopathy in the mediastinal hilar or axillary regions. The esophagus and thyroid are unremarkable. Images through the upper abdomen suboptimally demonstrated the liver but appears mildly enlarged with inhomogeneous attenuation which is new from previous study. 5.6 cm simple cyst noted upper pole left kidney at four severe simple cyst upper pole the right kidney. Bone windows show only moderate degenerative disc disease throughout the thoracic spine. IMPRESSION: 1. No evidence of pulmonary embolus 2. Moderate CHF 3. Moderate patchy groundglass infiltrates in the right upper, middle and lower lobes likely superimposed infiltrate or atypical edema. Small groundless infiltrate posterior left lower lobe 4. Moderate right and small left pleural effusions likely related to CHF 5. Moderate hepatomegaly with inhomogeneous attenuation - increased from the previous study. This could indicate primary hepatocellular diseases hepatitis or developing cirrhosis. Please correlate with LFTs Interpreted and Authenticated by: Cody Castañeda 12/03/18
[2018-12-03] MEDS ORDERED: FUROSEMIDE 20 MG/2 ML VIAL IV ONE (14:33)
--- NOTE | 2018-12-03 15:41 | Internal Med History&Physical ---
Medical - H&P: [facility] Patient information: Note initiated : 12/03/18 at 3:33 pm Service Date, if different from initiated Date: [] Patient: Alonso Finley a 78 y/o M admitted on for SOB, low sats. Chief Complaint: [] History of present illness: Mr. Finley is a 78 year old M with h/o metastatic carcinoid syndrome, chf, presents to the ER with complaints of shortness of breath. The patient was drowsy, (after ativan) in the ER and most of the history if from chart review and patients brother. The patient was recently discharged from this facility, and as per [facility] family after discharge was again getting progressively short of breath. He was unable to carry out his activity of daily living, unable to lie down and sleep, and short of breath with minimal activity, since his symptoms were getting worse, he was brought to the ER for further evaluation. In the ER pt was hppoxic on presentation but otherwise stable, he got duonebs and was doing well, when he had sudden onset shortness of breath, and also had a flushing episode. Pt became progressively hypoxic and needed bipap to maintain his oxygen levels. CTA was done which showed CHF, pleural effusions, but no PE, ? infiltrate Labs show wbc 6.2, hemoglobin 10.7, platelets 40 chronically low, d-dimer 3.2, lactic acid 0.8. Sodium 145 potassium 4.3 bicarbonate 28 creatinine 0.8 glucose 85 BNP 6242. Pro-calcitonin less than 0.05, troponin negative Given that patient was back on BiPAP for acute hypoxic respiratory failure, the patient is being admitted to PCU for further management ROS unobtainable: due to mental status Medical - H&P: [facility] Medical history: Medical History (Last Reviewed 11/28/18 @ 15:00 by Raymond Tsang MD) Avulsion of skin (Resolved) Thrombocytopenia (Chronic) Lesion of lumbar spine (Chronic) Schatzki's ring (Chronic 08/27/14) Renal cyst (Chronic) Reactive airway disease (Chronic 01/29/14) Pseudophakia (Chronic) Peripheral vascular disease (Chronic) Osteoarthritis (Chronic) Neuroendocrine carcinoma (Chronic) Myocardial infarction, old (Chronic) Macrocytosis (Chronic) Abnormal liver function test (Chronic) Hypertension, essential (Chronic) Hyperlipidemia (Chronic) Hydrocele (Chronic) Dysphagia (Chronic) Corneal dystrophy (Chronic) Benign neoplasm of colon (Chronic) Secondary malignant neoplasm of liver (Chronic) Metastatic carcinoid tumor (Chronic) CAD (coronary artery disease) (Chronic) Deficiency anemia (Chronic) Vitreous detachment (Resolved) Vitreous hemorrhage (Resolved) Actinic keratosis (Chronic 05/13/13) The patient is a 78-year-old male with a 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 He has had liver metastasis, status post partial right hepatectomy, small bowel resection and intraoperative endoscopic and incidental appendectomy on 12/17/2009. He has documented L2 and T8 vertebral body metastasis, biopsy of the former on 03/27/2014. He has had disease progression with most of the right side of the liver being replaced by tumor, with a negative octreoscan even with the above findings. The patient is status post chemoembolization on 03/16/2018 with hepatic arteriography and subsequent embolization with irinotecan, cisplatin and doxorubicin drug-eluting beads. The patient is on lanreotide and Afinitor (everolimus) since 05/26/2018. Surgical history: Past Surgical History (Last Reviewed 11/28/18 @ 15:00 by Raymond Tsang MD) History of esophagogastroduodenoscopy (Resolved 08/27/14) History of shoulder surgery (Resolved) History of resection of small bowel (Resolved) History of squamous cell carcinoma (Resolved 10/10/10) History of coronary artery stent placement (Resolved) History of colonoscopy (Resolved 02/21/14) History of cataract surgery (Resolved) History of appendectomy (Resolved) History of surgery of liver (Resolved) Pertinent family history: Family History (Last Reviewed 11/28/18 @ 15:00 by Raymond Tsang MD) Father Abdominal aortic aneurysm Other Cancer Medical - H&P: Meds Home Medications Medication Instructions Recorded Confirmed Type lanreotide 1 vial SUB-Q QMONTH 01/07/18 12/03/18 History everolimus (antineoplastic) 10 mg 40 mg PO QDAY 08/12/18 12/03/18 History tablet tamsulosin 0.4 mg capsule 0.4 mg PO QDAY #90 cap 08/12/18 12/03/18 Rx Omeprazole [Prilosec] 40 mg PO BID 11/25/18 12/03/18 History HYDROcodone/APAP 10/325MG [[place] 1 tab PO Q4H PRN 11/28/18 12/03/18 History 10-325Mg] Azithromycin [Zithromax] 500 mg PO DAILY #2 tab 12/01/18 12/03/18 Rx Cefdinir 300 mg PO BID #10 cap 12/01/18 12/03/18 Rx Allergies Allergy/AdvReac Type Severity Reaction Status Date / Time morphine Allergy Severe Irritable Verified 11/28/18 13:35 codeine sulfate Allergy Severe Agitated Uncoded 11/28/18 13:35 Medical - H&P: Exam - Constitutional Vitals: Temp Pulse Resp BP Pulse Ox 97.6 F 83 19 140/76 100 12/03/18 11:29 12/03/18 15:25 12/03/18 15:25 12/03/18 15:16 12/03/18 15:25 Exam: GENERAL: The patient is a well-developed, well-nourished in no apparent distress. Is drowsy and oriented x0. VITAL SIGNS: Reviewed and as noted elsewhere. HEENT: Head is normocephalic and atraumatic. Extraocular muscles are intact. Pupils are equal, round, and reactive to light. Nares appeared normal. Mouth appears any without lesions. NECK: Normal to inspection, Supple, No lymphadenopathy or thyromegaly. LUNGS: Air entry equal on both sides, no wheezing, crackles or rhonchi noted. No accessory muscles of respiration, pt on bipap, HEART: Regular rate and rhythm normal, S1 and S2 heard, no Gallop, S3 or Rub Noted, systolic murmur aortic region. ABDOMEN: Soft, nontender, and nondistended. Positive bowel sounds. No hepatosplenomegaly was noted. EXTREMITIES: No cyanosis, clubbing, rash, lesions, florence edema Right > left, NEUROLOGIC: unable, but no obvious cn nerve palsy noted, moving all extremities. PSYCHIATRIC: drowsy SKIN: , No jaundice, No rash noted. Medical - H&P: Reslt - Labs CBC & Chem 7: 12/03/18 12:00 12/03/18 12:00 Labs: Short CBC 12/03/18 Range/Units 12:00 WBC 6.2 (4.5-11.0) K/mcL Hgb 10.7 L (13.5-16.5) g/dL Hct 30.8 L (41.0-55.0) % Plt Count 40 L* (140-440) K/mcL BMP 12/03/18 12:00 Sodium 145 Potassium 4.3 Chloride 107 Carbon Dioxide 29 BUN 17 Creatinine 0.8 Glucose 85 Calcium 8.5 L Cardiac Enzymes 12/03/18 Range/Units 12:00 Troponin T < 0.01 (0-0.03) ng/ml Liver Function 12/03/18 Range/Units 12:00 Total Bilirubin 0.3 (0.0-1.0) mg/dL AST 22 (0-37) U/l ALT 12 (0-40) U/l Alkaline Phosphatase 103 (39-117) U/L Albumin 3.3 (3.2-5.2) gm/dL Medical - H&P: A/P - Narrative A/P Narrative: A/P Acute Hypoxic Respiratory Failure - etiology, CHF, bronchospasms from carcinoid, COPD flare? PNA ? On bipap for now, treat underlying etiologies for now and deescalate Acute systolic CHF -IV lasix for now echo done last month shows mild lvh, 40-45% lvef -Bronchospasms/ Acute exacerbation of COPD given h/o carcinoid syndrome with vasomotor symptoms, avoid beta 2 agnoist, use ipratropium only, start on IV benadryl 25mg q6, famotidine 20mg bid, solumedrol for now. Patient is already on long acting somatostatin analoquge, if symptmos worsen will add octreotide. Carcinoid syndrome/ metastatic carcinoid cancer -follows with Dr foote on lantretide and afinitor therapy Health care associated pna -neg wbc, neg procalcitonin, but CT shows possible pna, cover with vanco and zosn for now dysphagia s/p esophageal dilation by Dr Kim. CAD/HTN/HLD -stable, monitor Thrombocytopenia/Anemia -stable at baseline, outpatient follow up with oncology. 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
[2018-12-03] MEDS ORDERED: NALOXONE HCL 0.4 MG/ML VIAL IV PRN (15:58)
[2018-12-03] MEDS ORDERED: VANCOMYCIN PER PHARMACY IV ONE (15:58)
[2018-12-03 16:08] LABS: Appearance,Urine CLEAR; Bacteria,Urine 0 /hpf (0); Bilirubin,Urine NEG (NEG); Color,Urine YELLOW; Glucose,Urine (UA) NEGATIVE (NEG); Leukocyte Esterase,Urine NEG /uL (NEG); Mucus,Urine FEW /hpf (0); Protein,Urine 30 mg/dL (NEG); Specific Gravity,Urine 1.041 (1.000-1.035); Urine Blood NEG mg/dL (<0.03); Urine Hyaline Cast 5 /lpf (0-2); Urine RBC < 1 /hpf (0-1); Urine Squamous Epithelial Cell 0 /hpf (0-4); Urine WBC < 1 /hpf (0-4); Urobilinogen,Urine NEG (NEG)
[2018-12-03] MEDS ORDERED: IPRATROPIUM 2.5 ML AMPUL.NEB ONE (16:15)
[2018-12-03] MEDS: IPRATROPIUM 2.5 ML AMPUL.NEB NEB SCH ×3 (16:21→22:35)
[2018-12-03] MEDS: VANCOMYCIN 1,250 MG in 0.9 % SODIUM CHLORIDE 500 ML IV SCH (16:39)
[2018-12-03] MEDS: FUROSEMIDE 40 MG/4 ML VIAL IV SCH (16:39)
[2018-12-03] MEDS: FAMOTIDINE/PF 20 MG/2 ML VIAL IV SCH ×2 (16:39→21:27)
[2018-12-03] MEDS: EVEROLIMUS 10 MG PO SCH (16:44)
[2018-12-03] MEDS: PIPERACILLIN SODIUM/TAZOBACTAM 3.375 GM in DEXTROSE 5% IN WATER 50 ML IV SCH (19:10)
[2018-12-03] MEDS: methylPREDNISolone SOD SUCC 125 MG/2 ML VIAL IV SCH (21:27)
[2018-12-03] MEDS: HEPARIN 5,000 UNIT/ML VIAL SQ SCH (21:42)
[2018-12-03] MEDS: OMEPRAZOLE 20 MG CAPSULE PO SCH ×2 (21:43→21:47)
[2018-12-03] MEDS: 0.9 % SODIUM CHLORIDE 10 ML SYRINGE IV SCH (21:46)
[2018-12-03] MEDS: diphenhydrAMINE 50 MG/ML VIAL IV SCH (22:50)
[2018-12-04] MEDS ORDERED: OLANZapine 10 MG VIAL IM ONE
[2018-12-04] MEDS: PIPERACILLIN SODIUM/TAZOBACTAM 3.375 GM in DEXTROSE 5% IN WATER 50 ML IV SCH ×5 (00:09→23:54)
[2018-12-04] MEDS: OLANZapine 10 MG VIAL IM SCH (00:59)
[2018-12-04] MEDS: IPRATROPIUM 2.5 ML AMPUL.NEB NEB SCH ×6 (02:39→22:41)
[2018-12-04] MEDS ORDERED: LORazepam 2 MG/ML VIAL ONE ×2 (03:04→06:57)
[2018-12-04] MEDS: 0.9 % SODIUM CHLORIDE 10 ML SYRINGE IV SCH ×5 (05:47→22:06)
[2018-12-04] MEDS: methylPREDNISolone SOD SUCC 125 MG/2 ML VIAL IV SCH (05:48)
[2018-12-04] MEDS: diphenhydrAMINE 50 MG/ML VIAL IV SCH (05:48)
[2018-12-04] MEDS ORDERED: LORazepam 2 MG/ML VIAL IV PRN (06:59)
[2018-12-04] MEDS ORDERED: VANCOMYCIN PER PHARMACY IV SCH (07:15)
[2018-12-04 07:24] LABS: ALT/SGPT 21 U/l (0-40); Albumin 3.3 gm/dL (3.2-5.2); Albumin/Globulin Ratio 0.9 (1.0-2.3); Alkaline Phosphatase 112 U/L (39-117); Bilirubin,Direct < 0.2 mg/dL (0.0-0.3); Blood Urea Nitrogen 21 mg/dl (8-23); Gamma Glutamyl Transpeptidase 41 U/L (8-61); Uric Acid 5.5 mg/dL (2.5-8.0)
[2018-12-04] MEDS: FUROSEMIDE 40 MG/4 ML VIAL IV SCH (07:58)
[2018-12-04 08:38] LABS: Basophils # (Auto) 0 K/mcL (0.0-0.3); Basophils % (Auto) 0.1 % (0.0-2.0); Eosinophils # (Auto) 0 K/mcL (0.0-0.7); Eosinophils % (Auto) 0.1 % (0.0-7.0); Granulocytes % (Auto) 85.7 % (38.0-78.0); Lymphocytes # (Auto) 2.6 K/mcL (1.5-4.8); Mean Cell Volume 92.3 fL (80.0-100.0); Mean Corpuscular HGB Conc 35.2 g/dL (31.0-36.0); Monocytes # (Auto) 0.4 K/mcL (0.1-0.9); Monocytes % (Auto) 1.1 % (1.0-12.0); Platelet Count 43 K/mcL (140-440); RBC 3.25 M/mcL (4.50-5.90); Red Cell Distribution Width 16.5 % (11.5-14.5)
[2018-12-04] MEDS ORDERED: LANREOTIDE SUB-Q SCH (09:00)
[2018-12-04] MEDS: VANCOMYCIN 1,250 MG in 0.9 % SODIUM CHLORIDE 500 ML IV SCH (09:30)
[2018-12-04] MEDS: FAMOTIDINE/PF 20 MG/2 ML VIAL IV SCH (10:00)
--- NOTE | 2018-12-04 11:10 | Internal Med Progress Note ---
Medical - PN: Subj Patient information: Note initiated : 12/04/18 at 11:08 am Service Date, if different from initiated Date: [] Patient: Alonso Finley a 78 y/o M admitted on 12/03/18 for SOB, low sats. Chief Complaint: [] Interval history: Mr. Finley is a 78 year old M with h/o metastatic carcinoid syndrome, chf, presents to the ER with complaints of shortness of breath. The patient was drowsy, (after ativan) in the ER and most of the history if from chart review and patients brother. The patient was recently discharged from this facility, and as per [facility] family after discharge was again getting progressively short of breath. He was unable to carry out his activity of daily living, unable to lie down and sleep, and short of breath with minimal activity, since his symptoms were getting worse, he was brought to the ER for further evaluation. In the ER pt was hppoxic on presentation but otherwise stable, he got duonebs and was doing well, when he had sudden onset shortness of breath, and also had a flushing episode. Pt became progressively hypoxic and needed bipap to maintain his oxygen levels. CTA was done which showed CHF, pleural effusions, but no PE, ? infiltrate Labs show wbc 6.2, hemoglobin 10.7, platelets 40 chronically low, d-dimer 3.2, lactic acid 0.8. Sodium 145 potassium 4.3 bicarbonate 28 creatinine 0.8 glucose 85 BNP 6242. Pro-calcitonin less than 0.05, troponin negative Given that patient was back on BiPAP for acute hypoxic respiratory failure, the patient is being admitted to PCU for further management Mr. Finley is a 78 year old M with h/o metastatic carcinoid syndrome, chf, presents to the ER with complaints of shortness of breath. The patient was drowsy, (after ativan) in the ER and most of the history if from chart review and patients brother. The patient was recently discharged from this facility, and as per [facility] family after discharge was again getting progressively short of breath. He was unable to carry out his activity of daily living, unable to lie down and sleep, and short of breath with minimal activity, since his symptoms were getting worse, he was brought to the ER for further evaluation. In the ER pt was hppoxic on presentation but otherwise stable, he got duonebs and was doing well, when he had sudden onset shortness of breath, and also had a flushing episode. Pt became progressively hypoxic and needed bipap to maintain his oxygen levels. CTA was done which showed CHF, pleural effusions, but no PE, ? infiltrate Labs show wbc 6.2, hemoglobin 10.7, platelets 40 chronically low, d-dimer 3.2, lactic acid 0.8. Sodium 145 potassium 4.3 bicarbonate 28 creatinine 0.8 glucose 85 BNP 6242. Pro-calcitonin less than 0.05, troponin negative Given that patient was back on BiPAP for acute hypoxic respiratory failure, the patient is being admitted to PCU for further management 2/3 Patient seen examined, overnight issues noted, off bipap, delirious, unable to tolerate bipap well also did not want cintron, needed zyprexa and 1:1 to keep him in bed family was by bed side this AM pt was able to speak few words, most of which were incoherent mild bump in sodium, creat is up to 1.3 Pertinent ROS: unable - Constitutional Vitals: Vital Signs Temp Pulse Resp BP Pulse Ox 97.2 F 95 H 18 153/94 98 12/04/18 08:00 12/04/18 03:01 12/04/18 08:00 12/04/18 08:00 12/04/18 08:00 Period Temp Pulse Resp BP Sys/Martinez Pulse Ox Last 24 Hr 97.2 F-98.5 F 77-114 15-38 102-166/56-125 86-100 Intake and Output 12/03/18 12/04/18 12/04/18 21:59 05:59 13:59 Intake Total 1700 910 28 Output Total 2615 76 703 Balance -915 834 -675 Weight 160 lb Intake & Output: Intake & Output 12/03/18 12/04/18 12/04/18 21:59 05:59 13:59 Intake Total 1700 910 28 Output Total 2615 76 703 Balance -915 834 -675 Weight 160 lb Intake: IV 1700 550 28 Sodium Chloride 0.9% 1,000 ml @ 1600 Wide Open IV [facility] ONE Rx#: [id number] Zosyn 3.375 gm In Dextrose 5% 100 50 28 in Water 50 ml @ 100 mls/hr IV Q6H [place] Rx#:[id number] Vancomycin 1,250 mg In Sodium 500 Chloride 0.9% 500 ml @ 333.3 mls/hr IV Q24H [facility] Rx#: [id number] Oral 360 Output: Urine Catheter Amount 2615 Void Amount 75 700 # of times incontinent of urine 1 3 Other: Meal Tuna sandwhich Percent of Meal Consumed 100% Feeding Ability Independent Urine Appearance Clear Clear Clear Uretheral (Cintron) Clear Urine Color Pale Pale Bright Yellow Uretheral (Cintron) Pale Urine Odor Normal Normal Stool Size Small Moderate Stool Color Black Green Stool Consistency Soft Liquid Loose # Voids 1 1 # Bowel Movements 1 # of times incontinent of 0 1 Bowels Exam: Constitutional; Afebrile, confused awake, not in distress. Respiratory system: Air Entry equal on both sides, No crackles or wheezing, no rhonchi. CVS- Rate rhythm regular, S1,S2 heard, no gallop, no rub. Abdomen- Soft nontender abdomen, no organomegaly, no tenderness, no guarding or rigidity, RECREATION TECHNICIAN- AOOx 0, moving all extremities, no gross focal deficit noted. Medical - PN: Obj Da - Labs CBC & Chem 7: 12/04/18 04:00 12/04/18 04:00 Labs: Abnormal Lab Results 12/04/18 12/04/18 12/03/18 04:00 04:00 15:20 WBC 3.1 L RBC 3.25 L Hgb 10.6 L Hct 30.1 L POC Hct RDW 16.5 H Plt Count 43 L* MPV 11.1 H Gran % 85.7 H Lymph % (Auto) 13.0 L [place] % (Auto) Baso % (Auto) [place] # (Auto) D-Dimer POC Sodium Sodium 147 H Creatinine 1.3 H Glucose 207 H Calcium 8.5 L Lactate Dehydrogenase 312 H NT-Pro-B Natriuret Pep Albumin/Globulin Ratio 0.9 L Ur Specific Icard 1.041 H Urine Protein 30 A Hyaline Casts 5 H 12/03/18 12/03/18 12/03/18 12:00 12:00 12:00 WBC RBC 3.39 L Hgb 10.7 L Hct 30.8 L POC Hct 29.0 L RDW 16.0 H Plt Count 40 L* MPV 11.2 H Gran % Lymph % (Auto) [place] % (Auto) 17.2 H Baso % (Auto) 2.5 H [place] # (Auto) 1.1 H D-Dimer 3.20 H POC Sodium 146 H Sodium Creatinine Glucose Calcium 8.5 L Lactate Dehydrogenase NT-Pro-B Natriuret Pep 6242.0 H Albumin/Globulin Ratio 0.9 L Ur Specific Icard Urine Protein Hyaline Casts Meds: Medications Furosemide (Lasix) 60 mg IV BIDD [facility] Heparin Sodium (Porcine) (Heparin) 5,000 unit SQ Q12 [facility] Last Admin: 12/03/18 21:42 Dose: 5,000 unit Documented by: Piperacillin Sod/Tazobactam (Sod 3.375 gm/ Dextrose) 50 mls @ 100 mls/hr IV Q6H [facility] Last Infusion: 12/04/18 06:05 Dose: 100 mls/hr Documented by: Vancomycin HCl 1,250 mg/ (Sodium Chloride) 500 mls @ 333.3 mls/hr IV Q24H [facility] Last Infusion: 12/04/18 02:04 Dose: Infused Documented by: Ipratropium [place] (Atrovent) 2.5 ml NEB Q4HRT [facility] Last Admin: 12/04/18 08:57 Dose: Not Given Documented by: Lorazepam (Ativan) 0.5 mg IV Q4HP PRN PRN Reason: ANXIETY/SEDATION Methylprednisolone Sodium Succinate (Solu-Medrol) 62.5 mg IV Q8 [facility] Last Admin: 12/04/18 05:48 Dose: 62.5 mg Documented by: Naloxone HCl (Narcan) 0.1 mg IV Q2MIN PRN PRN Reason: Opiate Reversal Olanzapine (Zyprexa) 10 mg IM ONCE [facility] Stop: 12/05/18 00:16 Last Admin: 12/04/18 00:59 Dose: 10 mg Documented by: Omeprazole (Prilosec) 40 mg PO BID [facility] Last Admin: 12/03/18 21:47 Dose: Not Given Documented by: Everolimus [Afinitor (] 10 Mg Tab) 1 dose PO DAILY@1700 [facility] Last Admin: 12/03/18 16:44 Dose: 1 dose Documented by: Sodium Chloride (Saline Flush) 10 ml IV Q8 [facility] Last Admin: 12/04/18 07:58 Dose: 10 ml Documented by: Tamsulosin HCl (Flomax) 0.4 mg PO QDAY [facility] Vancomycin HCl (Vancomycin Per Pharmacy) 1 order IV UD [facility] Medical - PN: A/P - Time Spent With Patient Total time spent is greater than 50% in coordination of care (as documented) at patient's floor/unit and/or counseling patient: - Narrative A/P Narrative: A/P Acute Hypoxic Respiratory Failure - etiology, CHF, bronchospasms from carcinoid, COPD flare? PNA ? -on oxygen via [place], prn bipap Acute systolic CHF -IV lasix for now echo done last month shows mild lvh, 40-45% lvef Acute Kidney Injury -creat is 1.3, up from yesterday -due to lasix? contrast nephropathy? moniotor renal function. -Bronchospasms/ Acute exacerbation of COPD given h/o carcinoid syndrome with vasomotor symptoms, avoid beta 2 agnoist, use ipratropium only, continue steroids, no wheeze today d/c benadryl and famotidine, cut back on solumedrol Acute delirium, ICU -conservative management, -start on seroquel 25mg bid Carcinoid syndrome/ metastatic carcinoid cancer -follows with Dr foote on lantretide and afinitor therapy Health care associated pna -neg wbc, neg procalcitonin, but CT shows possible pna, cover with vanco and zosn for now dysphagia s/p esophageal dilation by Dr Kim. CAD/HTN/HLD -stable, monitor Thrombocytopenia/Anemia -stable at baseline, outpatient follow up with oncology. DVT hep sq for now Full code Medical - PN: Qual - VTE Deep Vein Thrombosis/Pulmonary Embolism Present on Admission: No
[2018-12-04] MEDS: TAMSULOSIN 0.4 MG CAPSULE PO SCH (11:27)
[2018-12-04] MEDS: HEPARIN 5,000 UNIT/ML VIAL SQ SCH ×2 (11:27→19:00)
[2018-12-04] MEDS: QUEtiapine 25 MG TABLET PO SCH ×2 (11:28→18:59)
[2018-12-04] MEDS: OMEPRAZOLE 20 MG CAPSULE PO SCH ×2 (14:16→18:59)
[2018-12-04] MEDS: EVEROLIMUS 10 MG PO SCH ×2 (15:34→15:35)
[2018-12-04] MEDS: FUROSEMIDE 100 MG/10 ML VIAL IV SCH (16:07)
[2018-12-04] MEDS ORDERED: methylPREDNISolone SOD SUCC 125 MG/2 ML VIAL IV SCH (21:00)
[2018-12-05] MEDS: OLANZapine 10 MG VIAL IM SCH (02:45)
[2018-12-05] MEDS: IPRATROPIUM 2.5 ML AMPUL.NEB NEB SCH ×6 (03:53→22:57)
[2018-12-05] MEDS: PIPERACILLIN SODIUM/TAZOBACTAM 3.375 GM in DEXTROSE 5% IN WATER 50 ML IV SCH ×3 (05:20→18:05)
[2018-12-05] MEDS: 0.9 % SODIUM CHLORIDE 10 ML SYRINGE IV SCH ×3 (05:20→21:45)
[2018-12-05 06:21] LABS: ALT/SGPT 17 U/l (0-40); Albumin 2.9 gm/dL (3.2-5.2); Alkaline Phosphatase 87 U/L (39-117); Bilirubin,Direct < 0.2 mg/dL (0.0-0.3); Blood Urea Nitrogen 28 mg/dl (8-23); Gamma Glutamyl Transpeptidase 33 U/L (8-61); Uric Acid 5.8 mg/dL (2.5-8.0)
[2018-12-05 06:39] LABS: Basophils # (Auto) 0 K/mcL (0.0-0.3); Basophils % (Auto) 0 % (0.0-2.0); Eosinophils # (Auto) 0 K/mcL (0.0-0.7); Eosinophils % (Auto) 0 % (0.0-7.0); Granulocytes % (Auto) 84.6 % (38.0-78.0); Lymphocytes # (Auto) 0.6 K/mcL (1.5-4.8); Lymphocytes % (Auto) 11.3 % (15.5-49.0); Mean Cell Volume 87.7 fL (80.0-100.0); Mean Corpuscular HGB Conc 33.4 g/dL (31.0-36.0); Monocytes # (Auto) 0.2 K/mcL (0.1-0.9); Monocytes % (Auto) 4.1 % (1.0-12.0); Platelet Count 35 K/mcL (140-440); RBC 2.74 M/mcL (4.50-5.90); Red Cell Distribution Width 16.4 % (11.5-14.5)
[2018-12-05] MEDS ORDERED: methylPREDNISolone SOD SUCC 125 MG/2 ML VIAL IV STA (08:16)
--- NOTE | 2018-12-05 08:18 | XRay Report ---
HISTORY: Follow-up congestive heart failure FINDINGS: The heart is mildly enlarged. This has remained stable. There is pulmonary vascular congestion. This has improved significantly since 12/03/18. There may be a residual small subpulmonic pleural effusion on the right side. There is mild arthritis in the spine and shoulders. IMPRESSION: Improving congestive heart failure Interpreted and Authenticated by: Loc Dick 12/05/18
[2018-12-05] MEDS: QUEtiapine 25 MG TABLET PO SCH ×2 (08:19→21:24)
[2018-12-05] MEDS: OMEPRAZOLE 20 MG CAPSULE PO SCH ×2 (08:19→21:24)
[2018-12-05] MEDS: TAMSULOSIN 0.4 MG CAPSULE PO SCH (08:19)
[2018-12-05] MEDS: HEPARIN 5,000 UNIT/ML VIAL SQ SCH ×2 (08:19→21:26)
[2018-12-05] MEDS: FUROSEMIDE 100 MG/10 ML VIAL IV SCH (08:31)
[2018-12-05] MEDS: VANCOMYCIN 1,250 MG in 0.9 % SODIUM CHLORIDE 500 ML IV SCH (10:49)
[2018-12-05] MEDS ORDERED: NALOXONE HCL 0.4 MG/ML VIAL IV PRN (12:11)
[2018-12-05] MEDS ORDERED: VANCOMYCIN PER PHARMACY IV SCH (12:11)
[2018-12-05] MEDS ORDERED: LORazepam 2 MG/ML VIAL IV PRN (12:11)
--- NOTE | 2018-12-05 12:13 | Internal Med Progress Note ---
Medical - PN: Subj Patient information: Note initiated : 12/05/18 at 12:08 pm Service Date, if different from initiated Date: [] Patient: Alonso Finley a 78 y/o M admitted on 12/03/18 for SOB, low sats. Chief Complaint: [] Interval history: Mr. Finley is a 78 year old M with h/o metastatic carcinoid syndrome, chf, presents to the ER with complaints of shortness of breath. The patient was drowsy, (after ativan) in the ER and most of the history if from chart review and patients brother. The patient was recently discharged from this facility, and as per coco family after discharge was again getting progressively short of breath. He was unable to carry out his activity of daily living, unable to lie down and sleep, and short of breath with minimal activity, since his symptoms were getting worse, he was brought to the ER for further evaluation. In the ER pt was hppoxic on presentation but otherwise stable, he got duonebs and was doing well, when he had sudden onset shortness of breath, and also had a flushing episode. Pt became progressively hypoxic and needed bipap to maintain his oxygen levels. CTA was done which showed CHF, pleural effusions, but no PE, ? infiltrate Labs show wbc 6.2, hemoglobin 10.7, platelets 40 chronically low, d-dimer 3.2, lactic acid 0.8. Sodium 145 potassium 4.3 bicarbonate 28 creatinine 0.8 glucose 85 BNP 6242. Pro-calcitonin less than 0.05, troponin negative Given that patient was back on BiPAP for acute hypoxic respiratory failure, the patient is being admitted to PCU for further management Mr. Finley is a 78 year old M with h/o metastatic carcinoid syndrome, chf, presents to the ER with complaints of shortness of breath. The patient was drowsy, (after ativan) in the ER and most of the history if from chart review and patients brother. The patient was recently discharged from this facility, and as per coco family after discharge was again getting progressively short of breath. He was unable to carry out his activity of daily living, unable to lie down and sleep, and short of breath with minimal activity, since his symptoms were getting worse, he was brought to the ER for further evaluation. In the ER pt was hppoxic on presentation but otherwise stable, he got duonebs and was doing well, when he had sudden onset shortness of breath, and also had a flushing episode. Pt became progressively hypoxic and needed bipap to maintain his oxygen levels. CTA was done which showed CHF, pleural effusions, but no PE, ? infiltrate Labs show wbc 6.2, hemoglobin 10.7, platelets 40 chronically low, d-dimer 3.2, lactic acid 0.8. Sodium 145 potassium 4.3 bicarbonate 28 creatinine 0.8 glucose 85 BNP 6242. Pro-calcitonin less than 0.05, troponin negative Given that patient was back on BiPAP for acute hypoxic respiratory failure, the patient is being admitted to PCU for further management 2/3 Patient seen examined, overnight issues noted, off bipap, delirious, unable to tolerate bipap well also did not want cintron, needed zyprexa and 1:1 to keep him in bed family was by bed side this AM pt was able to speak few words, most of which were incoherent mild bump in sodium, creat is up to 1.3 2/ Pt seen examined, no acute overnight issues, pt tolerating po diet well, mental status today is much better, he was sitting in chair comfortable, and answering questions appropriately X ray chest shows improved chf, sodium level 148, creat 1.2 xfer to med surg Pertinent ROS: Denies headache, dizziness Denies chest pain, palpitations Denies cough or shortness of breath Denies abdominal pain, nausea or vomiting. - Constitutional Vitals: Vital Signs Temp Pulse Resp BP Pulse Ox 97.2 F 79 16 110/77 91 12/05/18 08:03 12/05/18 11:31 12/05/18 11:31 12/05/18 08:03 12/05/18 08:12 Period Temp Pulse Resp BP Sys/Martinez Pulse Ox Last 24 Hr 97.2 F-98.9 F 49-120 15-27 90-151/49-139 87-97 Intake and Output 12/04/18 12/05/18 12/05/18 21:59 05:59 13:59 Intake Total 175 530 460 Output Total 126 976 Balance 49 -446 460 Weight 153 lb Intake & Output: Intake & Output 12/04/18 12/05/18 12/05/18 21:59 05:59 13:59 Intake Total 175 530 460 Output Total 126 976 Balance 49 -446 460 Weight 153 lb Intake: IV 175 50 100 Zosyn 3.375 gm In Dextrose 5% 50 50 100 in Water 50 ml @ 100 mls/hr IV Q6H [facility] Rx#:[id number] Vancomycin 1,250 mg In Sodium 125 Chloride 0.9% 500 ml @ 333.3 mls/hr IV Q24H [facility] Rx#: [id number] Oral 480 360 Output: Void Amount 126 525 # of times incontinent of urine 0 1 Urine/Stool Mix 450 Other: Meal Breakfast Percent of Meal Consumed 100% Feeding Ability Assist with Tray Set Up Urine Appearance Clear Clear Urine Color Bright Yellow Dark Yellow Urine Odor Normal Normal Stool Color Roman Colored # Voids 1 Exam: Constitutional; Afebrile, cooperative, alert, not in distress. Respiratory system: Air Entry equal on both sides, No crackles or wheezing, no rhonchi. CVS- Rate rhythm regular, S1,S2 heard, no gallop, no rub. 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 Medical - PN: Obj Da - Labs CBC & Chem 7: 12/05/18 03:31 12/05/18 03:31 Labs: Abnormal Lab Results 12/05/18 12/05/18 12/04/18 03:31 03:31 04:00 WBC RBC 2.74 L Hgb 8.0 L Hct 24.0 L POC Hct RDW 16.4 H Plt Count 35 L* MPV 11.2 H Gran % 84.6 H Lymph % (Auto) 11.3 L Vance % (Auto) Baso % (Auto) Lymph # (Auto) 0.6 L Vance # (Auto) D-Dimer POC Sodium Sodium 148 H 147 H Carbon Dioxide 33 H BUN 28 H Creatinine 1.3 H Glucose 129 H 207 H Calcium 8.2 L 8.5 L Phosphorus 5.5 H Lactate Dehydrogenase 312 H NT-Pro-B Natriuret Pep Albumin 2.9 L Albumin/Globulin Ratio 0.9 L Ur Specific [place] Urine Protein Hyaline Casts 12/04/18 12/03/18 12/03/18 04:00 15:20 12:00 WBC 3.1 L RBC 3.25 L Hgb 10.6 L Hct 30.1 L POC Hct 29.0 L RDW 16.5 H Plt Count 43 L* MPV 11.1 H Gran % 85.7 H Lymph % (Auto) 13.0 L Vance % (Auto) Baso % (Auto) Lymph # (Auto) Vance # (Auto) D-Dimer POC Sodium 146 H Sodium Carbon Dioxide BUN Creatinine Glucose Calcium 8.5 L Phosphorus Lactate Dehydrogenase NT-Pro-B Natriuret Pep 6242.0 H Albumin Albumin/Globulin Ratio 0.9 L Ur Specific [place] 1.041 H Urine Protein 30 A Hyaline Casts 5 H 12/03/18 12/03/18 12:00 12:00 WBC RBC 3.39 L Hgb 10.7 L Hct 30.8 L POC Hct RDW 16.0 H Plt Count 40 L* MPV 11.2 H Gran % Lymph % (Auto) Vance % (Auto) 17.2 H Baso % (Auto) 2.5 H Lymph # (Auto) Vance # (Auto) 1.1 H D-Dimer 3.20 H POC Sodium Sodium Carbon Dioxide BUN Creatinine Glucose Calcium Phosphorus Lactate Dehydrogenase NT-Pro-B Natriuret Pep Albumin Albumin/Globulin Ratio Ur Specific [place] Urine Protein Hyaline Casts Meds: Medications Heparin Sodium (Porcine) (Heparin) 5,000 unit SQ Q12 [facility] Last Admin: 12/05/18 08:19 Dose: 5,000 unit Documented by: Piperacillin Sod/Tazobactam (Sod 3.375 gm/ Dextrose) 50 mls @ 100 mls/hr IV Q6H [facility] Last Infusion: 12/05/18 12:08 Dose: Infused Documented by: Vancomycin HCl 1,250 mg/ (Sodium Chloride) 500 mls @ 333.3 mls/hr IV Q24H [facility] Last Admin: 12/05/18 10:49 Dose: 250 mls/hr Documented by: Ipratropium [place] (Atrovent) 2.5 ml NEB Q4HRT [facility] Last Admin: 12/05/18 11:25 Dose: 2.5 ml Documented by: Lorazepam (Ativan) 0.5 mg IV Q4HP PRN PRN Reason: ANXIETY/SEDATION Naloxone HCl (Narcan) 0.1 mg IV Q2MIN PRN PRN Reason: Opiate Reversal Omeprazole (Prilosec) 40 mg PO BID [facility] Last Admin: 12/05/18 08:19 Dose: 40 mg Documented by: Everolimus [Afinitor (] 10 Mg Tab) 1 dose PO DAILY@1700 [facility] Last Admin: 12/04/18 15:35 Dose: 1 dose Documented by: Prednisone (Prednisone) 40 mg PO [facility] Quetiapine Fumarate (Seroquel) 25 mg PO BID [facility] Last Admin: 12/05/18 08:19 Dose: 25 mg Documented by: Sodium Chloride (Saline Flush) 10 ml IV Q8 [facility] Last Admin: 12/05/18 05:20 Dose: 10 ml Documented by: Tamsulosin HCl (Flomax) 0.4 mg PO QDAY [facility] Last Admin: 12/05/18 08:19 Dose: 0.4 mg Documented by: Vancomycin HCl (Vancomycin Per Pharmacy) 1 order IV UD [facility] Medical - PN: A/P - Time Spent With Patient Total time spent is greater than 50% in coordination of care (as documented) at patient's floor/unit and/or counseling patient: - Narrative A/P Narrative: A/P Acute Hypoxic Respiratory Failure - etiology, CHF, bronchospasms from carcinoid, COPD flare? PNA ? -on oxygen via nc, wean off oxygen as tolerated. Acute systolic CHF -d/c IV lasix, start po lasix, cx ray shows improving chf, echo done last month shows mild lvh, 40-45% lvef Acute Kidney Injury -creat is 1.2, improved from yesterday -due to lasix? contrast nephropathy? monitor renal function. -Bronchospasms/ Acute exacerbation of COPD given h/o carcinoid syndrome with vasomotor symptoms, avoid beta 2 agnoist, use ipratropium only, continue steroids, no wheeze today d/c benadryl and famotidine, switch to oral steroids. Acute delirium, ICU -conservative management, -start on seroquel 25mg bid -resolving. Carcinoid syndrome/ metastatic carcinoid cancer -follows with Dr foote on lantretide and afinitor therapy Health care associated pna -neg wbc, neg procalcitonin, but CT shows possible pna, cover with vanco and zosn for now dysphagia s/p esophageal dilation by Dr Kim. CAD/HTN/HLD -stable, monitor Thrombocytopenia/Anemia -stable at baseline, outpatient follow up with oncology. DVT hep sq for now Full code Medical - PN: Qual - VTE Deep Vein Thrombosis/Pulmonary Embolism Present on Admission: No
[2018-12-05] MEDS: FUROSEMIDE 40 MG TABLET PO SCH (13:10)
[2018-12-05] MEDS: EVEROLIMUS 10 MG PO SCH (17:05)
[2018-12-06] MEDS: PIPERACILLIN SODIUM/TAZOBACTAM 3.375 GM in DEXTROSE 5% IN WATER 50 ML IV SCH ×4 (00:10→18:39)
[2018-12-06] MEDS: IPRATROPIUM 2.5 ML AMPUL.NEB NEB SCH ×5 (03:30→18:48)
[2018-12-06] MEDS: 0.9 % SODIUM CHLORIDE 10 ML SYRINGE IV SCH ×3 (05:53→20:54)
[2018-12-06 07:03] LABS: ALT/SGPT 24 U/l (0-40); Albumin/Globulin Ratio 1.1 (1.0-2.3); Alkaline Phosphatase 97 U/L (39-117); Bilirubin,Direct < 0.2 mg/dL (0.0-0.3); Blood Urea Nitrogen 31 mg/dl (8-23); Gamma Glutamyl Transpeptidase 53 U/L (8-61); Uric Acid 4.8 mg/dL (2.5-8.0)
[2018-12-06 07:24] LABS: Basophils # (Auto) 0 K/mcL (0.0-0.3); Basophils % (Auto) 0.2 % (0.0-2.0); Eosinophils # (Auto) 0 K/mcL (0.0-0.7); Eosinophils % (Auto) 0 % (0.0-7.0); Granulocytes % (Auto) 65.3 % (38.0-78.0); Lymphocytes # (Auto) 1.2 K/mcL (1.5-4.8); Lymphocytes % (Auto) 19.3 % (15.5-49.0); Mean Cell Volume 92.8 fL (80.0-100.0); Mean Corpuscular HGB Conc 35.7 g/dL (31.0-36.0); Platelet Count 34 K/mcL (140-440); RBC 2.81 M/mcL (4.50-5.90); Red Cell Distribution Width 16.2 % (11.5-14.5)
[2018-12-06] MEDS ORDERED: predniSONE 20 MG TABLET PO SCH (08:00)
[2018-12-06] MEDS ORDERED: DEXTROSE 5% IN WATER 1,000 ML IV SCH (08:15)
[2018-12-06] MEDS: predniSONE 20 MG TABLET PO SCH (08:32)
[2018-12-06] MEDS: TAMSULOSIN 0.4 MG CAPSULE PO SCH (09:25)
[2018-12-06] MEDS: VANCOMYCIN 1,250 MG in 0.9 % SODIUM CHLORIDE 500 ML IV SCH (09:25)
[2018-12-06] MEDS: HEPARIN 5,000 UNIT/ML VIAL SQ SCH ×2 (09:25→20:52)
[2018-12-06] MEDS: QUEtiapine 25 MG TABLET PO SCH ×2 (09:25→20:51)
[2018-12-06] MEDS: OMEPRAZOLE 20 MG CAPSULE PO SCH ×2 (09:26→20:51)
[2018-12-06] MEDS: FUROSEMIDE 40 MG TABLET PO SCH (09:27)
[2018-12-06] MEDS ORDERED: POTASSIUM CHLORIDE 40 MEQ in DEXTROSE 5% IN WATER 500 ML IV ONE (11:06)
--- NOTE | 2018-12-06 11:14 | Internal Med Progress Note ---
Medical - PN: Subj Patient information: Note initiated : 12/06/18 at 11:12 am Service Date, if different from initiated Date: [] Patient: Alonso Finley a 78 y/o M admitted on 12/03/18 for SOB, low sats. Chief Complaint: [] Interval history: Mr. Finley is a 78 year old M with h/o metastatic carcinoid syndrome, chf, presents to the ER with complaints of shortness of breath. The patient was drowsy, (after ativan) in the ER and most of the history if from chart review and patients brother. The patient was recently discharged from this facility, and as per coco family after discharge was again getting progressively short of breath. He was unable to carry out his activity of daily living, unable to lie down and sleep, and short of breath with minimal activity, since his symptoms were getting worse, he was brought to the ER for further evaluation. In the ER pt was hppoxic on presentation but otherwise stable, he got duonebs and was doing well, when he had sudden onset shortness of breath, and also had a flushing episode. Pt became progressively hypoxic and needed bipap to maintain his oxygen levels. CTA was done which showed CHF, pleural effusions, but no PE, ? infiltrate Labs show wbc 6.2, hemoglobin 10.7, platelets 40 chronically low, d-dimer 3.2, lactic acid 0.8. Sodium 145 potassium 4.3 bicarbonate 28 creatinine 0.8 glucose 85 BNP 6242. Pro-calcitonin less than 0.05, troponin negative Given that patient was back on BiPAP for acute hypoxic respiratory failure, the patient is being admitted to PCU for further management Mr. Finley is a 78 year old M with h/o metastatic carcinoid syndrome, chf, presents to the ER with complaints of shortness of breath. The patient was drowsy, (after ativan) in the ER and most of the history if from chart review and patients brother. The patient was recently discharged from this facility, and as per coco family after discharge was again getting progressively short of breath. He was unable to carry out his activity of daily living, unable to lie down and sleep, and short of breath with minimal activity, since his symptoms were getting worse, he was brought to the ER for further evaluation. In the ER pt was hppoxic on presentation but otherwise stable, he got duonebs and was doing well, when he had sudden onset shortness of breath, and also had a flushing episode. Pt became progressively hypoxic and needed bipap to maintain his oxygen levels. CTA was done which showed CHF, pleural effusions, but no PE, ? infiltrate Labs show wbc 6.2, hemoglobin 10.7, platelets 40 chronically low, d-dimer 3.2, lactic acid 0.8. Sodium 145 potassium 4.3 bicarbonate 28 creatinine 0.8 glucose 85 BNP 6242. Pro-calcitonin less than 0.05, troponin negative Given that patient was back on BiPAP for acute hypoxic respiratory failure, the patient is being admitted to PCU for further management 2/3 Patient seen examined, overnight issues noted, off bipap, delirious, unable to tolerate bipap well also did not want cintron, needed zyprexa and 1:1 to keep him in bed family was by bed side this AM pt was able to speak few words, most of which were incoherent mild bump in sodium, creat is up to 1.3 2/ Pt seen examined, no acute overnight issues, pt tolerating po diet well, mental status today is much better, he was sitting in chair comfortable, and answering questions appropriately X ray chest shows improved chf, sodium level 148, creat 1.2 xfer to med surg 2 Pt seen examined, no acute issues reported, pt feeling better, he is still short of breath on minimal exertin, still needs oxygn to maintain osat > 90, his sodium level is slowly creeping up, educated to drink more water encourage pulmonary toilet Pertinent ROS: Denies headache, dizziness Denies chest pain, palpitations shortness of breath present but improving. Denies abdominal pain, nausea or vomiting. - Constitutional Vitals: Vital Signs Temp Pulse Resp BP Pulse Ox 99.4 F H 97 H 16 128/62 95 12/06/18 08:00 12/06/18 09:09 12/06/18 08:00 12/06/18 08:00 12/06/18 08:00 Period Temp Pulse Resp BP Sys/Martinez Pulse Ox Last 24 Hr 97.9 F-99.4 F 79-97 16-22 119-139/62-86 90-95 Intake and Output 12/05/18 12/06/18 12/06/18 21:59 05:59 13:59 Intake Total 410 350 Balance 410 350 Weight 154 lb Intake & Output: Intake & Output 12/05/18 12/06/18 12/06/18 21:59 05:59 13:59 Intake Total 410 350 Balance 410 350 Weight 154 lb Intake: IV 50 50 Zosyn 3.375 gm In Dextrose 5% 50 50 in Water 50 ml @ 100 mls/hr IV Q6H [facility] Rx#:[id number] Oral 360 300 Other: Meal Breakfast Percent of Meal Consumed 100% Feeding Ability Independent Stool Size Moderate Stool Color Brown Stool Consistency Loose # Voids 1 # Bowel Movements 1 Exam: Constitutional; Afebrile, cooperative, alert, not in distress. Respiratory system: Air Entry equal on both sides, bibasilar crackles present. CVS- Rate rhythm regular, S1,S2 heard, no gallop, no rub. 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 Medical - PN: Obj Da - Labs CBC & Chem 7: 12/06/18 04:35 12/06/18 04:35 Labs: Abnormal Lab Results 12/06/18 12/06/18 12/05/18 04:35 04:35 03:31 WBC RBC 2.81 L Hgb 9.3 L Hct 26.1 L POC Hct RDW 16.2 H Plt Count 34 L* MPV 11.2 H Gran % Lymph % (Auto) [place] % (Auto) 15.0 H Baso % (Auto) Lymph # (Auto) 1.2 L [place] # (Auto) 1.0 H D-Dimer POC Sodium Sodium 149 H 148 H Carbon Dioxide 33 H 33 H BUN 31 H 28 H Creatinine Glucose 109 H 129 H Calcium 8.1 L 8.2 L Phosphorus 5.5 H AST 39 H Lactate Dehydrogenase 260 H NT-Pro-B Natriuret Pep Total Protein 5.8 L Albumin 3.0 L 2.9 L Albumin/Globulin Ratio Ur Specific [place] Urine Protein Hyaline Casts 12/05/18 12/04/18 12/04/18 03:31 04:00 04:00 WBC 3.1 L RBC 2.74 L 3.25 L Hgb 8.0 L 10.6 L Hct 24.0 L 30.1 L POC Hct RDW 16.4 H 16.5 H Plt Count 35 L* 43 L* MPV 11.2 H 11.1 H Gran % 84.6 H 85.7 H Lymph % (Auto) 11.3 L 13.0 L [place] % (Auto) Baso % (Auto) Lymph # (Auto) 0.6 L [place] # (Auto) D-Dimer POC Sodium Sodium 147 H Carbon Dioxide BUN Creatinine 1.3 H Glucose 207 H Calcium 8.5 L Phosphorus AST Lactate Dehydrogenase 312 H NT-Pro-B Natriuret Pep Total Protein Albumin Albumin/Globulin Ratio 0.9 L Ur Specific [place] Urine Protein Hyaline Casts 12/03/18 12/03/18 12/03/18 15:20 12:00 12:00 WBC RBC Hgb Hct POC Hct 29.0 L RDW Plt Count MPV Gran % Lymph % (Auto) [place] % (Auto) Baso % (Auto) Lymph # (Auto) [place] # (Auto) D-Dimer 3.20 H POC Sodium 146 H Sodium Carbon Dioxide BUN Creatinine Glucose Calcium 8.5 L Phosphorus AST Lactate Dehydrogenase NT-Pro-B Natriuret Pep 6242.0 H Total Protein Albumin Albumin/Globulin Ratio 0.9 L Ur Specific [place] 1.041 H Urine Protein 30 A Hyaline Casts 5 H 12/03/18 12:00 WBC RBC 3.39 L Hgb 10.7 L Hct 30.8 L POC Hct RDW 16.0 H Plt Count 40 L* MPV 11.2 H Gran % Lymph % (Auto) [place] % (Auto) 17.2 H Baso % (Auto) 2.5 H Lymph # (Auto) [place] # (Auto) 1.1 H D-Dimer POC Sodium Sodium Carbon Dioxide BUN Creatinine Glucose Calcium Phosphorus AST Lactate Dehydrogenase NT-Pro-B Natriuret Pep Total Protein Albumin Albumin/Globulin Ratio Ur Specific [place] Urine Protein Hyaline Casts Meds: Medications Furosemide (Lasix) 40 mg PO DAILY [facility] Last Admin: 12/06/18 09:27 Dose: 40 mg Documented by: Heparin Sodium (Porcine) (Heparin) 5,000 unit SQ Q12 [facility] Last Admin: 12/06/18 09:25 Dose: 5,000 unit Documented by: Piperacillin Sod/Tazobactam (Sod 3.375 gm/ Dextrose) 50 mls @ 100 mls/hr IV Q6H [facility] Last Admin: 12/06/18 05:53 Dose: 100 mls/hr Documented by: Vancomycin HCl 1,250 mg/ (Sodium Chloride) 500 mls @ 333.3 mls/hr IV Q24H [facility] Last Admin: 12/06/18 09:25 Dose: 333.3 mls/hr Documented by: Potassium Chloride 40 meq/ (Dextrose) 520 mls @ 130 mls/hr IV ONCE ONE Stop: 12/06/18 15:05 Ipratropium [place] (Atrovent) 2.5 ml NEB Q6HRT [facility] Lorazepam (Ativan) 0.5 mg IV Q4HP PRN PRN Reason: ANXIETY/SEDATION Naloxone HCl (Narcan) 0.1 mg IV Q2MIN PRN PRN Reason: Opiate Reversal Omeprazole (Prilosec) 40 mg PO BID [facility] Last Admin: 12/06/18 09:26 Dose: 40 mg Documented by: Everolimus [Afinitor (] 10 Mg Tab) 1 dose PO DAILY@1700 [facility] Last Admin: 12/05/18 17:05 Dose: 1 dose Documented by: Prednisone (Prednisone) 40 mg PO QAC [facility] Last Admin: 12/06/18 08:32 Dose: 40 mg Documented by: Quetiapine Fumarate (Seroquel) 25 mg PO BID [facility] Last Admin: 12/06/18 09:25 Dose: 25 mg Documented by: Sodium Chloride (Saline Flush) 10 ml IV Q8 [facility] Last Admin: 12/06/18 05:53 Dose: 10 ml Documented by: Tamsulosin HCl (Flomax) 0.4 mg PO QDAY [facility] Last Admin: 12/06/18 09:25 Dose: 0.4 mg Documented by: Vancomycin HCl (Vancomycin Per Pharmacy) 1 order IV [facility] [place] Medical - PN: A/P - Time Spent With Patient Total time spent is greater than 50% in coordination of care (as documented) at patient's floor/unit and/or counseling patient: Medical - PN: Qual - VTE Deep Vein Thrombosis/Pulmonary Embolism Present on Admission: No
[2018-12-06 16:49] LABS: Blood Urea Nitrogen 26 mg/dl (8-23)
[2018-12-06] MEDS: EVEROLIMUS 10 MG PO SCH (17:40)
[2018-12-06 19:52] LABS: Appearance,Urine HAZY; Bacteria,Urine 0 /hpf (0); Bilirubin,Urine NEG (NEG); Color,Urine YELLOW; Glucose,Urine (UA) NEGATIVE (NEG); Leukocyte Esterase,Urine NEG /uL (NEG); Mucus,Urine FEW /hpf (0); Protein,Urine NEG (NEG); Urine Blood 0.03 mg/dL (<0.03); Urine Hyaline Cast 1 /lpf (0-2); Urine RBC 12 /hpf (0-1); Urine Squamous Epithelial Cell 1 /hpf (0-4); Urine Transitional Epi Cells < 1 /hpf (0-2); Urine WBC 3 /hpf (0-4); Urobilinogen,Urine NEG (NEG)
[2018-12-07] MEDS: IPRATROPIUM 2.5 ML AMPUL.NEB NEB SCH ×2 (00:24→06:58)
[2018-12-07] MEDS: PIPERACILLIN SODIUM/TAZOBACTAM 3.375 GM in DEXTROSE 5% IN WATER 50 ML IV SCH ×3 (00:24→13:00)
[2018-12-07] MEDS: 0.9 % SODIUM CHLORIDE 10 ML SYRINGE IV SCH ×3 (06:02→20:50)
[2018-12-07 06:45] LABS: ALT/SGPT 48 U/l (0-40); Albumin 2.8 gm/dL (3.2-5.2); Alkaline Phosphatase 108 U/L (39-117); Bilirubin,Direct 0.2 mg/dL (0.0-0.3); Blood Urea Nitrogen 23 mg/dl (8-23); Gamma Glutamyl Transpeptidase 84 U/L (8-61); Uric Acid 3.7 mg/dL (2.5-8.0)
[2018-12-07 07:09] LABS: Basophils # (Auto) 0.1 K/mcL (0.0-0.3); Basophils % (Auto) 0.6 % (0.0-2.0); Eosinophils # (Auto) 0 K/mcL (0.0-0.7); Eosinophils % (Auto) 0 % (0.0-7.0); Granulocytes % (Auto) 63.5 % (38.0-78.0); Lymphocytes # (Auto) 1.5 K/mcL (1.5-4.8); Lymphocytes % (Auto) 18.8 % (15.5-49.0); Mean Corpuscular HGB Conc 30.9 g/dL (31.0-36.0); Monocytes # (Auto) 1.4 K/mcL (0.1-0.9); Monocytes % (Auto) 17.1 % (1.0-12.0); Platelet Count 32 K/mcL (140-440); RBC 3.19 M/mcL (4.50-5.90); Red Cell Distribution Width 15.4 % (11.5-14.5)
[2018-12-07] MEDS: predniSONE 20 MG TABLET PO SCH (08:16)
[2018-12-07] MEDS ORDERED: IPRATROPIUM 2.5 ML AMPUL.NEB NEB PRN (08:23)
[2018-12-07] MEDS ORDERED: VANCOMYCIN 1,250 MG in 0.9 % SODIUM CHLORIDE 500 ML IV SCH (09:00)
--- NOTE | 2018-12-07 09:01 | XRay Report ---
HISTORY: Follow-up congestive heart failure FINDINGS: The heart size is normal and has diminished in size since 12/03/18. There are increased interstitial lung markings bilaterally, most apparent around the right hilum. These have also gradually improved. Lateral view shows mild blunting of the posterior costophrenic sulci due to residual tiny pleural effusions. No adenopathy is seen. There are degenerative changes in the spine and right shoulder. IMPRESSION: Resolved cardiomegaly Residual interstitial lung disease. This may be a combination of inflammation and underlying chronic pulmonary fibrosis. For the most part the congestive heart failure has resolved but there are still tiny bilateral pleural effusions. Interpreted and Authenticated by: Loc Dick 12/07/18
[2018-12-07] MEDS: VANCOMYCIN 1,250 MG in 0.9 % SODIUM CHLORIDE 500 ML IV SCH (10:19)
[2018-12-07] MEDS: OMEPRAZOLE 20 MG CAPSULE PO SCH ×2 (10:36→20:47)
[2018-12-07] MEDS: TAMSULOSIN 0.4 MG CAPSULE PO SCH (10:37)
[2018-12-07] MEDS: HEPARIN 5,000 UNIT/ML VIAL SQ SCH ×2 (10:37→20:49)
[2018-12-07] MEDS: FUROSEMIDE 40 MG TABLET PO SCH ×2 (10:37→15:33)
[2018-12-07] MEDS: QUEtiapine 25 MG TABLET PO SCH ×2 (10:37→20:47)
[2018-12-07] MEDS: LEVOFLOXACIN 750 MG TABLET PO SCH (15:33)
--- NOTE | 2018-12-07 17:02 | Internal Med Progress Note ---
Medical - PN: Subj Patient information: Note initiated : 12/07/18 at 4:57 pm Service Date, if different from initiated Date: [] Patient: Alonso Finley a 78 y/o M admitted on 12/03/18 for SOB, low sats. Chief Complaint: f/u CHF Interval history: 12/03 Mr. Finley is a 78 year old M with h/o metastatic carcinoid syndrome, chf, presents to the ER with complaints of shortness of breath. The patient was drowsy, (after Ativan) in the ER and most of the history if from chart review and patients brother. The patient was recently discharged from this facility, and as per the family after discharge was again getting progressively short of breath. He was unable to carry out his activity of daily living, unable to lie down and sleep, and short of breath with minimal activity, since his symptoms were getting worse, he was brought to the ER for further evaluation. In the ER pt was hypoxic on presentation but otherwise stable, he got Duonebs and was doing well, when he had sudden onset shortness of breath, and also had a flushing episode. Pt became progressively hypoxic and needed BiPAP to maintain his oxygen levels. CTA was done which showed CHF, pleural effusions, but no PE, ? infiltrate (ground glass changes, infection or possible asymmetrical edema ) Labs show WBC 6.2, hemoglobin 10.7, platelets 40 chronically low, d-dimer 3.2, lactic acid 0.8. Sodium 145 potassium 4.3 bicarbonate 28 creatinine 0.8 glucose 85 BNP 6242. Pro-calcitonin less than 0.05, troponin negative Given that patient was back on BiPAP for acute hypoxic respiratory failure, the patient is being admitted to PCU for further management 2/ Patient seen examined, overnight issues noted, off BiPAP, delirious, unable to tolerate BiPAP well also did not want Mcdermott, needed Zyprexa and 1:1 to keep him in bed family was by bed side this AM pt was able to speak few words, most of which were incoherent mild bump in sodium, creat is up to 1.3 12/05 Pt seen examined, no acute overnight issues, pt tolerating po diet well, mental status today is much better, he was sitting in chair comfortable, and answering questions appropriately X ray chest shows improved CHF, sodium level 148, creat 1.2 xfer to med surg 12/06 Pt seen examined, no acute issues reported, pt feeling better, he is still short of breath on minimal exertion, still needs oxygen to maintain O2 sat > 90, his sodium level is slowly creeping up, educated to drink more water encourage pulmonary toilet 12/07 Patient seen and examined. Still requires oxygen, desaturates to 85% on room air with any exertion. Still with exertion while vigorously tugging on blankets and bedding, or with ambulation. Chest x-ray shows improved heart failure, some chronic underlying changes. White count remains normal, however low-grade fever. No cough or sputum production, no chest pain. BNP up over 9000, was in 6000 range of presentation. Echo on 12/01 shows EF 4045 percent with anterior hypokinesis. Intake/output is recorded as mildly positive, though there has been some weight loss but weights are variable, bed versus standing scale. - Constitutional Vitals: Vital Signs Temp Pulse Resp BP Pulse Ox 100.2 F H 86 16 130/72 93 12/07/18 16:02 12/07/18 16:02 12/07/18 16:02 12/07/18 16:02 12/07/18 16:02 Period Temp Pulse Resp BP Sys/Martinez Pulse Ox Last 24 Hr 97.7 F-100.2 F 84-104 16-24 105-146/57-86 90-93 Intake and Output 12/07/18 12/07/18 12/07/18 05:59 13:59 21:59 Intake Total 250 1270 1160 Output Total 1 475 Balance 349 098 6379 Intake & Output: Intake & Output 12/07/18 12/07/18 12/07/18 05:59 13:59 21:59 Intake Total 250 1270 1160 Output Total 1 475 Balance 178 997 9307 Intake: IV 50 550 Zosyn 3.375 gm In Dextrose 5% 50 50 in Water 50 ml @ 100 mls/hr IV Q6H [facility] Rx#:[id number] Vancomycin 1,250 mg In Sodium 500 Chloride 0.9% 500 ml @ 333.3 mls/hr IV Q12H [place]IE Rx#: [id number] Oral [phone] Output: Void Amount 1 475 Other: Meal Lunch Percent of Meal Consumed 100% Urine Appearance Clear Urine Color Pale Urine Odor Normal Stool Size Small Stool Consistency Loose # Voids 1 1 # Bowel Movements 1 1 Exam: General: Laying in bed, able to speak in full sentences. Chest: Faint bibasilar rales, unlabored Cardiovascular: Regular rate and rhythm with 1/6 murmur Abdomen: Soft, nontender Neuro: Alert, oriented, mild generalized weakness, otherwise nonfocal. Medical - PN: Obj Da - Labs CBC & Chem 7: 12/07/18 04:15 12/07/18 04:15 Labs: Abnormal Lab Results 12/07/18 12/07/18 12/06/18 04:15 04:15 19:13 RBC 3.19 L Hgb 8.5 L Hct 27.4 L MCHC 30.9 L RDW 15.4 H Plt Count 32 L* MPV 10.7 H Gran % Lymph % (Auto) [place] % (Auto) 17.1 H Lymph # (Auto) [place] # (Auto) 1.4 H Sodium Carbon Dioxide 34 H Anion Gap 5.0 L BUN Glucose Calcium 7.9 L Phosphorus GGT 84 H AST 100 H ALT 48 H Lactate Dehydrogenase 307 H NT-Pro-B Natriuret Pep Total Protein 5.5 L Albumin 2.8 L Urine Occult Blood 0.03 A Urine RBC 12 H 12/06/18 12/06/18 12/06/18 15:44 15:44 04:35 RBC Hgb Hct MCHC RDW Plt Count MPV Gran % Lymph % (Auto) [place] % (Auto) Lymph # (Auto) [place] # (Auto) Sodium 149 H Carbon Dioxide 34 H 33 H Anion Gap 7.0 L BUN 26 H 31 H Glucose 163 H 109 H Calcium 8.2 L 8.1 L Phosphorus GGT AST 39 H ALT Lactate Dehydrogenase 260 H NT-Pro-B Natriuret Pep 9989.0 H Total Protein 5.8 L Albumin 3.0 L Urine Occult Blood Urine RBC 12/06/18 12/05/18 12/05/18 04:35 03:31 03:31 RBC 2.81 L 2.74 L Hgb 9.3 L 8.0 L Hct 26.1 L 24.0 L MCHC RDW 16.2 H 16.4 H Plt Count 34 L* 35 L* MPV 11.2 H 11.2 H Gran % 84.6 H Lymph % (Auto) 11.3 L [place] % (Auto) 15.0 H Lymph # (Auto) 1.2 L 0.6 L [place] # (Auto) 1.0 H Sodium 148 H Carbon Dioxide 33 H Anion Gap BUN 28 H Glucose 129 H Calcium 8.2 L Phosphorus 5.5 H GGT AST ALT Lactate Dehydrogenase NT-Pro-B Natriuret Pep Total Protein Albumin 2.9 L Urine Occult Blood Urine RBC Meds: Medications Furosemide (Lasix) 40 mg PO BIDD [facility] Last Admin: 12/07/18 15:33 Dose: 40 mg Documented by: Heparin Sodium (Porcine) (Heparin) 5,000 unit SQ Q12 [facility] Last Admin: 12/07/18 10:37 Dose: 5,000 unit Documented by: Ipratropium [place] (Atrovent) 2.5 ml NEB Q6HRT PRN PRN Reason: Dyspnea Levofloxacin (Levaquin) 750 mg PO DAILY [facility] Last Admin: 12/07/18 15:33 Dose: 750 mg Documented by: Lorazepam (Ativan) 0.5 mg IV Q4HP PRN PRN Reason: ANXIETY/SEDATION Naloxone HCl (Narcan) 0.1 mg IV Q2MIN PRN PRN Reason: Opiate Reversal Omeprazole (Prilosec) 40 mg PO BID [facility] Last Admin: 12/07/18 10:36 Dose: 40 mg Documented by: Everolimus [Afinitor (] 10 Mg Tab) 1 dose PO DAILY@1700 [facility] Last Admin: 12/06/18 17:40 Dose: 1 dose Documented by: Prednisone (Prednisone) 40 mg PO QAC [facility] Last Admin: 12/07/18 08:16 Dose: 40 mg Documented by: Quetiapine Fumarate (Seroquel) 25 mg PO [facility] Sodium Chloride (Saline Flush) 10 ml IV Q8 [facility] Last Admin: 12/07/18 13:33 Dose: 10 ml Documented by: Tamsulosin HCl (Flomax) 0.4 mg PO QDAY [facility] Last Admin: 12/07/18 10:37 Dose: 0.4 mg Documented by: - Imaging and cardiology Chest x-ray Status: image reviewed by me Additional comments: MPRESSION: Resolved cardiomegaly Residual interstitial lung disease. This may be a combination of inflammation and underlying chronic pulmonary fibrosis. For the most part the congestive heart failure has resolved but there are still tiny bilateral pleural effusions. Medical - PN: A/P (1) Acute on chronic systolic (congestive) heart failure Status: Acute Current Visit: Yes - Narrative A/P Narrative: A/P Acute Hypoxic Respiratory Failure -Persists on 12/07, remains on oxygen -Etiology, CHF, bronchospasms from carcinoid initially. No evidence of COPD exacerbation currently, some underlying chest x-ray changes, query fibrosis. Groundglass changes concerning for possible infection as well. -on oxygen via nc, wean off oxygen as tolerated. Remains off of BiPAP Acute on chronic systolic CHF -Still appears volume overloaded on 12/07, with oxygen requirement, elevated BNP -Add afternoon furosemide dose -Echo done last month shows mild lvh, decreased LVEF that 40-45% with significant wall motion abnormalities Possible health care associated pna -neg wbc, neg procalcitonin at admission, but CT shows possible pna (groundglass changes consistent with infection, though a typical edema as possible) -Initially received vanco and zosn for now, -repeat X ray without convincing infiltrate, possible atypical infection, we'll stop vancomycin and Zosyn and start levofloxacin and monitor Acute Kidney Injury -creat is 0.9, 10 used to improve -Possibly due to heart failure exacerbation and/or contrast nephropathy? monitor renal function. -Bronchospasms/ Acute exacerbation of COPD -given h/o carcinoid syndrome with vasomotor symptoms, avoid beta 2 agonist, use ipratropium only, continue steroids, no wheeze today -off Benadryl and famotine -on po steroids -Change ipratropium to as needed Acute delirium, ICU -conservative management, -start on seroquel 25mg bid, titrate down to 25 mg at bedtime on 12/07 -mental status back to baseline Carcinoid syndrome/ metastatic carcinoid cancer -follows with Dr Leary on lantretide and afinitor therapy pt due to for lantreotide inj this , may have to reschedule. dysphagia s/p esophageal dilation by Dr Kim. CAD/HTN/HLD -stable, monitor Thrombocytopenia/Anemia -stable at baseline, outpatient follow up with oncology. DVT hep sq for now Full code Medical - PN: Qual - VTE Deep Vein Thrombosis/Pulmonary Embolism Present on Admission: No
[2018-12-07] MEDS: EVEROLIMUS 10 MG PO SCH (17:32)
[2018-12-08 06:38] LABS: ALT/SGPT 56 U/l (0-40); Albumin 2.9 gm/dL (3.2-5.2); Alkaline Phosphatase 124 U/L (39-117); Bilirubin,Direct < 0.2 mg/dL (0.0-0.3); Blood Urea Nitrogen 19 mg/dl (8-23); Gamma Glutamyl Transpeptidase 107 U/L (8-61)
[2018-12-08 07:07] LABS: Basophils # (Auto) 0 K/mcL (0.0-0.3); Basophils % (Auto) 0 % (0.0-2.0); Eosinophils # (Auto) 0 K/mcL (0.0-0.7); Eosinophils % (Auto) 0.3 % (0.0-7.0); Granulocytes % (Auto) 56.2 % (38.0-78.0); Lymphocytes # (Auto) 1.6 K/mcL (1.5-4.8); Lymphocytes % (Auto) 23.8 % (15.5-49.0); Mean Cell Volume 85.9 fL (80.0-100.0); Mean Corpuscular HGB Conc 31.7 g/dL (31.0-36.0); Monocytes # (Auto) 1.3 K/mcL (0.1-0.9); Monocytes % (Auto) 19.4 % (1.0-12.0); Platelet Count 23 K/mcL (140-440); Red Cell Distribution Width 15.6 % (11.5-14.5)
[2018-12-08] MEDS: predniSONE 20 MG TABLET PO SCH (07:54)
[2018-12-08] MEDS: FUROSEMIDE 40 MG TABLET PO SCH ×2 (07:55→16:49)
[2018-12-08] MEDS: LEVOFLOXACIN 750 MG TABLET PO SCH (08:20)
[2018-12-08] MEDS: OMEPRAZOLE 20 MG CAPSULE PO SCH ×2 (08:20→20:41)
[2018-12-08] MEDS: TAMSULOSIN 0.4 MG CAPSULE PO SCH (08:20)
--- NOTE | 2018-12-08 13:56 | Ultrasound Report ---
History: Carcinoid syndrome with elevated liver enzymes FINDINGS: There are multiple nodules scattered throughout the liver. Largest in the left lobe is hypoechoic and measures 1.1 x 1.1 cm. There are multiple nodules in the right lobe. Similar hypointensity others are hyperechoic. The measure up to 2.5 x 2.9 cm. None of these nodules were seen on a prior abdomen CT done on 07/07/16. Doppler shows normal blood flow in the hepatic and portal veins. The liver nodules are hypovascular. The gallbladder is surgically absent. Common bile duct is mildly dilated measures 9.7 mm. The visualized portions of the pancreas appear normal without evidence of a mass or inflammation. The pancreatic duct is mildly dilated and measures up to 3.7 mm. No ascites is present. IMPRESSION: Multiple liver metastasis. Mildly dilated extrahepatic bile duct and pancreatic duct. This could be a reservoir effect following prior cholecystectomy or a nonvisualized stricture, mass or stone at the ampulla. This should be correlated with the patient's bilirubin level and pancreatic enzymes. Interpreted and Authenticated by: Loc Dick 12/08/18
[2018-12-08] MEDS: 0.9 % SODIUM CHLORIDE 10 ML SYRINGE IV SCH ×3 (16:48→20:41)
[2018-12-08] MEDS: EVEROLIMUS 10 MG PO SCH (16:49)
--- NOTE | 2018-12-08 20:16 | Internal Med Progress Note ---
Medical - PN: Subj Patient information: Note initiated : 12/08/18 at 8:13 pm Service Date, if different from initiated Date: [] Patient: Alonso Finley a 78 y/o M admitted on 12/03/18 for SOB, low sats. Chief Complaint: f/u CHF Interval history: 12/03 Mr. Finley is a 78 year old M with h/o metastatic carcinoid syndrome, chf, presents to the ER with complaints of shortness of breath. The patient was drowsy, (after Ativan) in the ER and most of the history if from chart review and patients brother. The patient was recently discharged from this facility, and as per the family after discharge was again getting progressively short of breath. He was unable to carry out his activity of daily living, unable to lie down and sleep, and short of breath with minimal activity, since his symptoms were getting worse, he was brought to the ER for further evaluation. In the ER pt was hypoxic on presentation but otherwise stable, he got Duonebs and was doing well, when he had sudden onset shortness of breath, and also had a flushing episode. Pt became progressively hypoxic and needed BiPAP to maintain his oxygen levels. CTA was done which showed CHF, pleural effusions, but no PE, ? infiltrate (ground glass changes, infection or possible asymmetrical edema ) Labs show WBC 6.2, hemoglobin 10.7, platelets 40 chronically low, d-dimer 3.2, lactic acid 0.8. Sodium 145 potassium 4.3 bicarbonate 28 creatinine 0.8 glucose 85 BNP 6242. Pro-calcitonin less than 0.05, troponin negative Given that patient was back on BiPAP for acute hypoxic respiratory failure, the patient is being admitted to PCU for further management 2/ Patient seen examined, overnight issues noted, off BiPAP, delirious, unable to tolerate BiPAP well also did not want Mcdermott, needed Zyprexa and 1:1 to keep him in bed family was by bed side this AM pt was able to speak few words, most of which were incoherent mild bump in sodium, creat is up to 1.3 2/ Pt seen examined, no acute overnight issues, pt tolerating po diet well, mental status today is much better, he was sitting in chair comfortable, and answering questions appropriately X ray chest shows improved CHF, sodium level 148, creat 1.2 xfer to med surg 12/06 Pt seen examined, no acute issues reported, pt feeling better, he is still short of breath on minimal exertion, still needs oxygen to maintain O2 sat > 90, his sodium level is slowly creeping up, educated to drink more water encourage pulmonary toilet 12/07 Patient seen and examined. Still requires oxygen, desaturates to 85% on room air with any exertion. Still with exertion while vigorously tugging on blankets and bedding, or with ambulation. Chest x-ray shows improved heart failure, some chronic underlying changes. White count remains normal, however low-grade fever. No cough or sputum production, no chest pain. BNP up over 9000, was in 6000 range of presentation. Echo on 12/01 shows EF 4045 percent with anterior hypokinesis. Intake/output is recorded as mildly positive, though there has been some weight loss but weights are variable, bed versus standing scale. 12/08 Liver enzymes continued to trend up slightly today. Ultrasound obtained, multiple known metastases from carcinoid noted. Dilated bile duct, could be secondary to history of cholecystectomy. Patient feels well, no abdominal pain, no nausea or vomiting. Dyspnea with exertion continues to slowly improve. Down to 1 L/m nasal cannula. - Constitutional Vitals: Vital Signs Temp Pulse Resp BP Pulse Ox 97.2 F 86 18 141/81 96 12/08/18 20:00 12/08/18 20:00 12/08/18 20:00 12/08/18 20:00 12/08/18 20:00 Period Temp Pulse Resp BP Sys/Martinez Pulse Ox Last 24 Hr 97.2 F-98.7 F 82-91 18-24 122-147/77-84 91-96 Intake and Output 12/08/18 12/08/18 12/08/18 05:59 13:59 21:59 Intake Total 250 360 360 Balance 250 360 360 Weight 146 lb Patient Weight 12/09/18 05:59 Weight 146 lb Intake & Output: Intake & Output 12/08/18 12/08/18 12/08/18 05:59 13:59 21:59 Intake Total 250 360 360 Balance 250 360 360 Weight 146 lb Intake: Oral 250 360 360 Other: Meal Breakfast Lunch Percent of Meal Consumed 100% 75% Urine Appearance Clear Urine Color Pale Urine Odor Normal Stool Size Small Stool Color Yellow Stool Consistency Liquid # Voids 1 # Bowel Movements 1 Exam: General: No acute distress Chest: Clear, no rales, labor Cardiovascular: Irregular, no lower extremity edema, JVP at clavicle while 45 Abdomen: Soft, nontender Neuro: Alert, oriented person, place, situation, moves all extremities, mild generalized weakness. Medical - PN: Obj Da - Labs CBC & Chem 7: 12/08/18 04:25 12/08/18 04:25 Labs: Abnormal Lab Results 12/08/18 12/08/18 12/07/18 04:25 04:25 04:15 RBC 3.10 L Hgb 8.4 L Hct 26.6 L MCHC RDW 15.6 H Plt Count 23 L* MPV 11.8 H [place] % (Auto) 19.4 H Lymph # (Auto) [place] # (Auto) 1.3 H Sodium 149 H Carbon Dioxide 37 H 34 H Anion Gap 6.0 L 5.0 L BUN Glucose Calcium 8.5 L 7.9 L GGT 107 H 84 H AST 67 H 100 H ALT 56 H 48 H Alkaline Phosphatase 124 H Lactate Dehydrogenase 283 H 307 H NT-Pro-B Natriuret Pep Total Protein 5.8 L 5.5 L Albumin 2.9 L 2.8 L Urine Occult Blood Urine RBC 12/07/18 12/06/18 12/06/18 04:15 19:13 15:44 RBC 3.19 L Hgb 8.5 L Hct 27.4 L MCHC 30.9 L RDW 15.4 H Plt Count 32 L* MPV 10.7 H [place] % (Auto) 17.1 H Lymph # (Auto) [place] # (Auto) 1.4 H Sodium Carbon Dioxide 34 H Anion Gap 7.0 L BUN 26 H Glucose 163 H Calcium 8.2 L GGT AST ALT Alkaline Phosphatase Lactate Dehydrogenase NT-Pro-B Natriuret Pep Total Protein Albumin Urine Occult Blood 0.03 A Urine RBC 12 H 12/06/18 12/06/18 12/06/18 15:44 04:35 04:35 RBC 2.81 L Hgb 9.3 L Hct 26.1 L MCHC RDW 16.2 H Plt Count 34 L* MPV 11.2 H [place] % (Auto) 15.0 H Lymph # (Auto) 1.2 L [place] # (Auto) 1.0 H Sodium 149 H Carbon Dioxide 33 H Anion Gap BUN 31 H Glucose 109 H Calcium 8.1 L GGT AST 39 H ALT Alkaline Phosphatase Lactate Dehydrogenase 260 H NT-Pro-B Natriuret Pep 9989.0 H Total Protein 5.8 L Albumin 3.0 L Urine Occult Blood Urine RBC Meds: Medications Furosemide (Lasix) 40 mg PO BIDD [facility] Last Admin: 12/08/18 16:49 Dose: 40 mg Documented by: Ipratropium [place] (Atrovent) 2.5 ml NEB Q6HRT PRN PRN Reason: Dyspnea Lorazepam (Ativan) 0.5 mg IV Q4HP PRN PRN Reason: ANXIETY/SEDATION Naloxone HCl (Narcan) 0.1 mg IV Q2MIN PRN PRN Reason: Opiate Reversal Omeprazole (Prilosec) 40 mg PO BID [facility] Last Admin: 12/08/18 08:20 Dose: 40 mg Documented by: Everolimus [Afinitor (] 10 Mg Tab) 1 dose PO DAILY@1700 [facility] Last Admin: 12/08/18 16:49 Dose: 1 dose Documented by: Prednisone (Prednisone) 20 mg PO [facility] Quetiapine Fumarate (Seroquel) 25 mg PO HS [facility] Last Admin: 12/07/18 20:47 Dose: 25 mg Documented by: Sodium Chloride (Saline Flush) 10 ml IV Q8 [facility] Last Admin: 12/08/18 16:49 Dose: Not Given Documented by: Tamsulosin HCl (Flomax) 0.4 mg PO QDAY [facility] Last Admin: 12/08/18 08:20 Dose: 0.4 mg Documented by: - Imaging and cardiology US - abdomen Additional comments: IMPRESSION: Multiple liver metastasis. Mildly dilated extrahepatic bile duct and pancreatic duct. This could be a reservoir effect following prior cholecystectomy or a nonvisualized stricture, mass or stone at the ampulla. This should be correlated with the patient's bilirubin level and pancreatic enzymes. Medical - PN: A/P (1) Acute on chronic systolic (congestive) heart failure Status: Acute Current Visit: Yes - Narrative A/P Narrative: A/P Acute Hypoxic Respiratory Failure -Persists on 12/08, improving however -Etiology, CHF, bronchospasms from carcinoid initially. No evidence of COPD exacerbation currently, some underlying chest x-ray changes, query fibrosis. Groundglass changes concerning for possible infection as well. -on oxygen via nc, wean off oxygen as tolerated. Remains off of BiPAP Acute on chronic systolic CHF -Volume status improved on 12/08, weight continues to drop. Intake and output do es not appear to be accurate. -Continue afternoon furosemide dose -Echo done last month shows mild lvh, decreased LVEF that 40-45% with significant wall motion abnormalities Possible health care associated pna -neg wbc, neg procalcitonin at admission, but CT shows possible pna (groundglass changes consistent with infection, though a typical edema as possible) -Initially received vanco and zosn for now -repeat X ray without convincing infiltrate, possible atypical infection; stopped vancomycin and Zosyn; now will stop levofloxacin and monitor Abnormal transaminases, GGT and alkaline phosphatase -Present for the past few days -Suspect may been initially secondary to volume overload/congestion, however effects of carcinoid tumors possible -No acute abnormality on ultrasound, dilated common bile duct may be secondary to cholecystectomy -Monitor 1 further day, likely can discharge with outpatient follow-up. Acute Kidney Injury -creat continues to improve -Possibly due to heart failure exacerbation and/or contrast nephropathy? monitor renal function. Bronchospasms/ Acute exacerbation of COPD -given h/o carcinoid syndrome with vasomotor symptoms, avoid beta 2 agonist, use ipratropium only, continue steroids, no wheeze today -off Benadryl and famotine -on po steroids, taper down to 20 mg daily -Change ipratropium to as needed Acute delirium, ICU -conservative management, -start on seroquel 25mg bid, titrate down to 25 mg at bedtime on 12/07 -mental status back to baseline, we'll stop cervical discharge Carcinoid syndrome/ metastatic carcinoid cancer -follows with Dr Leary -on lantretide and afinitor therapy -pt due to for lantreotide inj this , may have to reschedule. Dysphagia -s/p esophageal dilation by Dr Kim. CAD/HTN/HLD -stable, monitor Thrombocytopenia/Anemia -stable at baseline, outpatient follow up with oncology. DVT hep sq for now Full code Medical - PN: Qual - VTE Deep Vein Thrombosis/Pulmonary Embolism Present on Admission: No
[2018-12-08] MEDS: QUEtiapine 25 MG TABLET PO SCH (20:41)
[2018-12-09] MEDS: 0.9 % SODIUM CHLORIDE 10 ML SYRINGE IV SCH (05:42)
[2018-12-09 06:36] LABS: ALT/SGPT 64 U/l (0-40); Alkaline Phosphatase 162 U/L (39-117); Bilirubin,Direct < 0.2 mg/dL (0.0-0.3); Blood Urea Nitrogen 21 mg/dl (8-23); Gamma Glutamyl Transpeptidase 169 U/L (8-61); Uric Acid 4.5 mg/dL (2.5-8.0)
[2018-12-09 07:42] LABS: Basophils # (Auto) 0 K/mcL (0.0-0.3); Basophils % (Auto) 0.4 % (0.0-2.0); Eosinophils # (Auto) 0 K/mcL (0.0-0.7); Eosinophils % (Auto) 0.4 % (0.0-7.0); Granulocytes % (Auto) 54.2 % (38.0-78.0); Lymphocytes # (Auto) 1.7 K/mcL (1.5-4.8); Lymphocytes % (Auto) 26.4 % (15.5-49.0); Mean Cell Volume 86.2 fL (80.0-100.0); Mean Corpuscular HGB Conc 36.1 g/dL (31.0-36.0); Monocytes # (Auto) 1.2 K/mcL (0.1-0.9); Monocytes % (Auto) 18.6 % (1.0-12.0); Platelet Count 26 K/mcL (140-440); RBC 3.45 M/mcL (4.50-5.90); Red Cell Distribution Width 16.5 % (11.5-14.5)
[2018-12-09] MEDS ORDERED: predniSONE 20 MG TABLET PO SCH (08:00)
[2018-12-09] MEDS: FUROSEMIDE 40 MG TABLET PO SCH (08:24)
[2018-12-09] MEDS: OMEPRAZOLE 20 MG CAPSULE PO SCH (11:21)
[2018-12-09] MEDS: TAMSULOSIN 0.4 MG CAPSULE PO SCH (11:22)
--- NOTE | 2018-12-09 12:07 | Discharge Summary ---
Medical - DS: Prov Patient information: Note initiated : 12/09/18 at 12:04 pm Service Date, if different from initiated Date: [] Patient: Alonso Finley 78 y/o M admitted on 12/03/18 for SOB, low sats. Chief Complaint: [] Date of admission: 12/03/18 15:50 Discharge date: 12/09/18 Primary care physician: Raymond Tsang Admitting clinician: Mary Madrid Consults: 12/03/18 14:11 Consult to Physician [CONS] Stat Comment: Consulting Provider: Mary Madrid Reason For Exam: Physician to Consult Discharging clinician: Cynthia Vásquez Medical - DS: Meds - Discharge Medications Prescriptions: Furosemide [Lasix] 20 mg PO DAILY #30 tablet predniSONE [Prednisone] 20 mg PO QAMCC #5 tablet Active and Home Medications: Home Medications lanreotide 1 vial SUB-Q QMONTH 01/07/18 [History Confirmed 12/03/18 Last Taken Unknown] everolimus (antineoplastic) 10 mg tablet 10 mg PO DAILY@1700 08/12/18 [History Confirmed 12/03/18 Last Taken Unknown] tamsulosin 0.4 mg capsule 0.4 mg PO QDAY #90 cap 08/12/18 [Rx Confirmed 12/03/18 Last Taken Unknown] Omeprazole [Prilosec] 40 mg PO BID 11/25/18 [History Confirmed 12/03/18 Last Taken Unknown] HYDROcodone/APAP 10/325MG [[place] 10-325Mg] 1 tab PO Q4H PRN 11/28/18 [History Confirmed 12/03/18 Last Taken Unknown] Azithromycin [Zithromax] 500 mg PO DAILY #2 tab 12/01/18 [Rx Confirmed 12/03/18 Last Taken Unknown] Cefdinir 300 mg PO BID #10 cap 12/01/18 [Rx Confirmed 12/03/18 Last Taken Unknown] Medical - DS: Hosp Hospital course: Presentation: 12/03 Mr. Finley is a 78 year old M with h/o metastatic carcinoid syndrome, chf, presents to the ER with complaints of shortness of breath. The patient was drowsy, (after Ativan) in the ER and most of the history if from chart review and patients brother. The patient was recently discharged from this facility, and as per the family after discharge was again getting progressively short of breath. He was unable to carry out his activity of daily living, unable to lie down and sleep, and short of breath with minimal activity, since his symptoms were getting worse, he was brought to the ER for further evaluation. In the ER pt was hypoxic on presentation but otherwise stable, he got DuoNeb and was doing well, when he had sudden onset shortness of breath, and also had a flushing episode. Pt became progressively hypoxic and needed BiPAP to maintain his oxygen levels. CTA was done which showed CHF, pleural effusions, but no PE, ? infiltrate (carla und glass changes, infection or possible asymmetrical edema ) Labs show WBC 6.2, hemoglobin 10.7, platelets 40 chronically low, d-dimer 3.2, lactic acid 0.8. Sodium 145 potassium 4.3 bicarbonate 28 creatinine 0.8 glucose 85 BNP 6242. Pro-calcitonin less than 0.05, troponin negative Given that patient was back on BiPAP for acute hypoxic respiratory failure, the patient is being admitted to PCU for further management Course: 2 Patient seen examined, overnight issues noted, off BiPAP, delirious, unable to tolerate BiPAP well also did not want Mcdermott, needed Zyprexa and 1:1 to keep him in bed family was by bed side this AM pt was able to speak few words, most of which were incoherent mild bump in sodium, creat is up to 1.3 12/05 Pt seen examined, no acute overnight issues, pt tolerating po diet well, mental status today is much better, he was sitting in chair comfortable, and answering questions appropriately X ray chest shows improved CHF, sodium level 148, creat 1.2 xfer to med surg 12/06 Pt seen examined, no acute issues reported, pt feeling better, he is still short of breath on minimal exertion, still needs oxygen to maintain O2 sat > 90, his sodium level is slowly creeping up, educated to drink more water encourage pulmonary toilet 12/07 Patient seen and examined. Still requires oxygen, desaturates to 85% on room air with any exertion. Still with exertion while vigorously tugging on blankets and bedding, or with ambulation. Chest x-ray shows improved heart failure, some chronic underlying changes. White count remains normal, however low-grade fever. No cough or sputum production, no chest pain. BNP up over 9000, was in 6000 range of presentation. Echo on 12/01 shows EF 4045 percent with anterior hypokinesis. Intake/output is recorded as mildly positive, though there has been some weight loss but weights are variable, bed versus standing scale. 12/08 Liver enzymes continued to trend up slightly today. Ultrasound obtained, multip le known metastases from carcinoid noted. Dilated bile duct, could be secondary to history of cholecystectomy. Patient feels well, no abdominal pain, no nausea or vomiting. Dyspnea with exertion continues to slowly improve. Down to 1 L/m nasal cannula. 12/09 Patient feels well, good appetite, good spirits. Sleeping well. Minimal dyspnea with exertion, though still requires 1 L nasal cannula. Liver enzymes variably up a bit today, discussed with Dr. Leary, he's had some variable changes and LFTs associated with his carcinoid. Given his overall improvement and clinical stability, will plan to discharge with outpatient follow-up. Problems: Acute Hypoxic Respiratory Failure -Etiology, CHF, bronchospasms from carcinoid initially. No evidence of COPD exacerbation currently, some underlying chest x-ray changes, query fibrosis. -Resolved at discharge. Acute on chronic systolic CHF -Volume status improved with diuresis. Had significant weight loss to 146 po unds from 160 pounds at time of admission. -Echo done 11/2018 showed mild LVH, decreased LVEF that 40-45% with significant wall motion abnormalities Possible health care associated PNA -neg WBC, neg procalcitonin at admission, but CT showed possible PNA (groundglass changes consistent with infection, though a typical edema as possible) -Initially received vanco and Zosyn -Repeat X ray without convincing infiltrate, possible atypical infection; antibiotics stopped, stable. Abnormal transaminases, GGT and alkaline phosphatase -Suspect may been initially secondary to volume overload/congestion, however effects of carcinoid tumors possible -No acute abnormality on ultrasound, dilated common bile duct may be secondary to cholecystectomy -Outpatient f/u, discussed with Dr. Leary Acute Kidney Injury, resolved -Possibly due to heart failure exacerbation and/or contrast nephropathy? Thrombocytopenia/Anemia -stable at baseline, outpatient follow up with oncology. Bronchospasms/ Acute exacerbation of COPD -given h/o carcinoid syndrome with vasomotor symptoms, avoid beta 2 agonist, use ipratropium only, wheezing/obstruction discharge. -s/p Benadryl and famotine Acute delirium, ICU-Resolved -Treated with Seroquel, 25 mg twice a day, down to 25 mg at bedtime, stopped at discharge; mental status at baseline Carcinoid syndrome/ metastatic carcinoid cancer -follows with Dr Leary -on lantretide and afinitor therapy Dysphagia -s/p esophageal dilation by Dr Hodges. CAD/HTN/HLD -stable Discharge diagnosis: Acute on chronic systolic congestive heart failure Secondary discharge diagnosis: Acute Hypoxic Respiratory Failure, resolved Abnormal transaminases, GGT and alkaline phosphatase, persists Acute Kidney Injury, resolved Thrombocytopenia/Anemia, stable Bronchospasms/ Acute exacerbation of COPD, resolved Carcinoid syndrome, stable Acute ICU delirium, resolved - Time Spent with Patient Total time spent providing and/or coordinating discharge services: Greater than 30 minutes Medical - DS: Exam - Constitutional Vitals: Vital Signs Temp Pulse Resp BP Pulse Ox 12/09/18 07:07 98.6 F 20 125/68 93 12/09/18 04:00 97.6 F 86 18 121/76 96 12/09/18 00:00 98.4 F 88 16 112/67 94 12/08/18 20:00 97.2 F 86 18 141/81 96 12/08/18 16:00 98.7 F 90 22 129/78 91 Intake and Output 12/08/18 12/09/18 12/09/18 21:59 05:59 13:59 Intake Total 701 895 0650 Output Total 200 325 200 Balance 160 -125 1070 Intake: IV 1070 Oral 360 200 200 Output: Void Amount 200 325 200 Other: Meal Lunch Percent of Meal Consumed 75% Urine Appearance Clear Urine Color Pale Dark Yellow Urine Odor Normal Weight 146 lb Additional comments: General: In no acute distress, was ambulating in the halls Chest: Clear, unlabored, good inspiratory and expiratory effort Cardiovascular: Regular, no edema Abdomen: Soft, nontender, no right upper quadrant tenderness Neuro: Alert, oriented, nonfocal. Medical - DS: Data Labs on day of discharge: Labs from last 24 hours 12/09/18 12/09/18 03:52 03:52 WBC 6.6 RBC 3.45 L Hgb 10.8 L Hct 29.7 L MCV 86.2 MCH 31.1 MCHC 36.1 H RDW 16.5 H Plt Count 26 L* MPV 11.2 H Gran % 54.2 Lymph % (Auto) 26.4 [place] % (Auto) 18.6 H Eos % (Auto) 0.4 Baso % (Auto) 0.4 Gran # 3.6 Lymph # (Auto) 1.7 [place] # (Auto) 1.2 H Eos # (Auto) 0 Baso # (Auto) 0 Sodium 149 H Potassium 3.6 Chloride 104 Carbon Dioxide 38 H Anion Gap 7.0 L BUN 21 Creatinine 1.1 GFR Calculation 64 Glucose 97 Uric Acid 4.5 Calcium 8.6 Phosphorus 3.1 Magnesium 1.9 Total Bilirubin 0.5 Direct Bilirubin < 0.2 GGT 169 H AST 77 H ALT 64 H Alkaline Phosphatase 162 H Lactate Dehydrogenase 310 H Total Protein 6.0 Albumin 3.0 L Globulin 3.0 Albumin/Globulin Ratio 1.0 Triglycerides 115 - Imaging and Cardiology US - abdomen Additional comments: IMPRESSION: Multiple liver metastasis. Mildly dilated extrahepatic bile duct and pancreatic duct. This could be a reservoir effect following prior cholecystectomy or a nonvisualized stricture, mass or stone at the ampulla. This should be correlated with the patient's bilirubin level and pancreatic enzymes. CT scan - chest Additional comments: IMPRESSION: 1. No evidence of pulmonary embolus 2. Moderate CHF 3. Moderate patchy groundglass infiltrates in the right upper, middle and lower lobes likely superimposed infiltrate or atypical edema. Small groundless infiltrate posterior left lower lobe 4. Moderate right and small left pleural effusions likely related to CHF 5. Moderate hepatomegaly with inhomogeneous attenuation - increased from the previous study. This could indicate primary hepatocellular diseases hepatitis or developing cirrhosis. Please correlate with LFTs Chest x-ray Additional comments: IMPRESSION: Moderate CHF - worsening Small/moderate right and minimal left basilar infiltrate improving considerably over the past two days Medical - DS: A/P - Patient/Caregiver Discharge Instructions Activity: increase activity as tolerated Diet: Low Sodium (2gm) - Problem Maintenance (1) Acute on chronic systolic (congestive) heart failure Status: Resolved - Follow up Plan Follow up with: Raymond Tsang MD [Primary Care Provider] - Cody Nova MD [Physician] - Emanuel Leary MD [Physician] - Disposition: Home, Self-Care Prognosis: Fair Rehab Potential: Fair Overall status at discharge: patient is progressing back to baseline Medical - DS: Qual - VTE Deep Vein Thrombosis/Pulmonary Embolism Present on Admission: No
== END 2018-12-09 14:45 | disposition home or self-care (01) | DRG 291 ==
LOC: ED 11:27 → ICU 15:50 → MEDSUR 12-05 15:55
PROVIDERS: ADMIT Internal Medicine; ATTEND Internal Medicine